=== PATIENT | male | born 1965 | race Caucasian/White ===

== ENCOUNTER 2016-05-03 12:20 | Emergency (ER) | payer MEDICAID ==
[~2016-05-03] VITALS: Ht 182.9 cm; Wt 61.4 kg
[~2016-05-03 12:20] MED LIST: ACETAMINOPHEN W1 TA6 PO; AMOXICILLIN 50500 MG PO; AMOXICILLIN 8751 TAB PO; ASPIRIN 32325 MG/TAB PO; ASPRIN; ASPRIN PO; ATORVASTATIN; B-1100 MG PO; CEFTIN 250250 MG/TAB PO; CELEXA 20MG20 MG/TAB PO; CEPHALEXIN500 M1 PO; CIPRO 500MG TA500 MG PO; DAZIDOX10 MG PO; EFFIENT10 MG PO; FIORINAL W/CODE1 CA2 PO; FLEXERIL 1010 MG/TAB PO; FLEXERIL10 MG PO; IBU800 M1 PO; IMDUR30 MG PO; INDERAL 10MG10 MG PO; INDERAL 20MG20 MG PO; KLONOPIN 1MG1 MG PO; KLONOPIN0.5 MG PO; LIP PO; LISINOPRIL2.5 MG PO; LORTAB 5/500 501 TAB PO; METOPROLOL25 MG PO; MOBIC 7.5MG7.5 MG PO; MOTRIN 400400 MG/TAB PO; MULTIPLE VITAMI1 CAP PO; NAPROSYN500 MG PO; NO HOME MEDICATIONS; NORCO 325 MG-51 TAB; NORCO 325 MG-51 TAB PO; NORCO 325 MG-7.1 TAB PO; NORVASC 5MG5 MG/TAB PO; OMEPRAZOLE20 MG PO; PEN-VEE K250 MG PO; PEN-VEE K500 MG PO; PEPCID 20MG TAB20 MG PO; PEPCID AC20 M1 PO; PERCOCET 325 MG1 TA2 PO; PHENERGAN 25 TA25 MG PO; PHENERGAN W/CO120 M1 PO; PHENERGAN W/CO120 ML PO; PLAVIX 75MG TAB75 MG PO; PREDNISONE10 MG PO; PREDNISONE20 MG PO; PROMETHAZINE12.5 M5 PO; REGLAN 10MG10 MG/TAB PO; ROBAXIN 50500 MG/TAB PO; TESSALON PERLE200 MG PO; TUSS PO; TYLENOL 325MG325 MG PO; TYLENOL W/COD1 UDTAB PO; ULTRAM 50MG TAB50 MG PO; UNABLE; VALIUM 10MG10 MG/TAB PO; VALIUM 2MG T2 MG/TAB PO; VALIUM 5MG T5 MG/TAB PO; ZITHROMAX 250M250 MG PO; ZOFRAN4 M1 PO; ZOFRAN8 MG PO; [UNRECOGNIZED DRUG - OTHER] PO; [UNRECOGNIZED DRUG - REMARK]; [UNRECOGNIZED DRUG - REMARK]
[2016-05-03 12:24] VITALS: BP 137/95; PULSE 74; TEMP 97.4
== END 2016-05-03 12:52 | disposition home or self-care (01) ==
LOC: COL.ER 12:20
DX: R05 Cough (principal)

== ENCOUNTER 2016-09-06 13:43 | Emergency (ER) | payer MEDICAID ==
[~2016-09-06] VITALS: Ht 170.2 cm; Wt 63.6 kg
[2016-09-06 13:47] VITALS: BP 127/87; PULSE 93; TEMP 97.9
== END 2016-09-06 15:27 | disposition home or self-care (01) ==
LOC: COL.ER 13:43
DX: S62.667A Nondisplaced fracture of distal phalanx of left little finger, initial encounter for closed fracture (principal); S67.197A Crushing injury of left little finger, initial encounter; S60.052A Contusion of left little finger without damage to nail, initial encounter; W23.0XXA Caught, crushed, jammed, or pinched between moving objects, initial encounter; Y92.009 Unspecified place in unspecified non-institutional (private) residence as the place of occurrence of the external cause; Z95.1 Presence of aortocoronary bypass graft; G43.909 Migraine, unspecified, not intractable, without status migrainosus; F41.9 Anxiety disorder, unspecified; I25.10 Atherosclerotic heart disease of native coronary artery without angina pectoris; F17.200 Nicotine dependence, unspecified, uncomplicated; G89.29 Other chronic pain

== ENCOUNTER 2016-10-27 09:25 | Emergency (ER) | payer MEDICAID ==
[~2016-10-27] VITALS: Ht 172.7 cm; Wt 63.6 kg
[2016-10-27 09:27] VITALS: TEMP 97.4
[2016-10-27 10:01] LABS: BASO # 0.1 (0.0-0.2); BASO % 0.7 % (0.0-2.0); EOS # 0.2 (0.0-0.7); EOS % 1.8 % (0-4.0); GRAN # 5.1 (1.4-6.5); GRAN % 61.7 % (42.2-75.2); HEMATOCRIT 47.7 % (42.0-52.0); HEMOGLOBIN 15.9 g/dl (13.5-18.0); LYMPH # 2.2 (1.2-3.4); LYMPH % 26.7 % (20.0-51.0); MEAN CELL VOLUME 91 fl (80.0-100.0); MEAN CORPUSCULAR HEMOGLOBIN 30 pg (27.0-31.0); MEAN CORPUSCULAR HGB CONC 33 g/dl (33.0-37.0); MEAN PLATELET VOLUME 10.3 fl (7.4-10.4); MONO # 0.7 (0.1-0.6); MONO % 8.9 % (1.7-9.3); PLATELET COUNT 276 K/mm3 (130-400); RED BLOOD COUNT 5.27 M/mm3 (4.20-5.60); REDCELL DISTRIBUTION WIDTH-CV 13.3 % (11.5-14.5); WHITE BLOOD COUNT 8.3 K/mm3 (4.8-10.8)
[2016-10-27 10:09] LABS: CALCIUM 9.7 mg/dL (8.4-10.2); CREATININE, serum 1.1 mg/dL (0.66-1.25); POTASSIUM 4.1 mmol/L (3.4-5.0)
[2016-10-27] MEDS ORDERED: FIORICET 325 MG1 TA1 PO (11:26)
[2016-10-27] MEDS ORDERED: ZOFRAN ODT4 MG PO (11:26)
[2016-10-27 12:13] VITALS: BP 109/71; PULSE 88
== END 2016-10-27 12:14 | disposition home or self-care (01) ==
LOC: COL.ER 09:25
PROVIDERS: Emergency Medicine
DX: G43.909 Migraine, unspecified, not intractable, without status migrainosus (principal); F17.210 Nicotine dependence, cigarettes, uncomplicated; Z86.79 Personal history of other diseases of the circulatory system; Z95.5 Presence of coronary angioplasty implant and graft; Z95.1 Presence of aortocoronary bypass graft; Z98.890 Other specified postprocedural states
CPT/HCPCS: J1630; J1885; J2765; J3010; J7030

== ENCOUNTER 2016-10-27 18:38 | Emergency (ER) | payer MEDICAID ==
[~2016-10-27] VITALS: Ht 172.7 cm; Wt 63.6 kg
[~2016-10-27 18:38] MED LIST changes: +FIORICET 325 MG1 TA1 PO; +ZOFRAN ODT4 MG PO
[2016-10-27 18:40] VITALS: BP 135/90; TEMP 98
[2016-10-27 19:22] VITALS: PULSE 72
== END 2016-10-27 19:23 | disposition home or self-care (01) ==
LOC: COL.ER 18:38
DX: G43.909 Migraine, unspecified, not intractable, without status migrainosus (principal); I25.10 Atherosclerotic heart disease of native coronary artery without angina pectoris; Z95.1 Presence of aortocoronary bypass graft; F17.200 Nicotine dependence, unspecified, uncomplicated
CPT/HCPCS: J2300; J2550

== ENCOUNTER 2016-10-28 19:25 | Emergency (ER) | payer MEDICAID ==
[~2016-10-28] VITALS: Ht 172.7 cm; Wt 63.6 kg
[2016-10-28 19:31] VITALS: BP 137/95; TEMP 97.5
[2016-10-28 21:02] VITALS: PULSE 93
== END 2016-10-28 21:02 | disposition home or self-care (01) ==
LOC: COL.ER 19:25
DX: G43.909 Migraine, unspecified, not intractable, without status migrainosus (principal)
CPT/HCPCS: J1100; J2300; J2550

== ENCOUNTER 2016-11-30 08:07 | Emergency (ER) | payer MEDICAID ==
[~2016-11-30] VITALS: Ht 172.7 cm; Wt 63.6 kg
[2016-11-30 08:10] VITALS: BP 125/60; PULSE 97; TEMP 98
[2016-11-30] MEDS ORDERED: PREDNISONE20 MG PO (08:26)
[2016-11-30] MEDS ORDERED: ZITHROMAX Z PA250 MG PO (08:26)
[2016-11-30] MEDS ORDERED: TYLENOL 325MG325 MG PO (08:39)
== END 2016-11-30 09:05 | disposition home or self-care (01) ==
LOC: COL.ER 08:07
DX: J40 Bronchitis, not specified as acute or chronic (principal)

== ENCOUNTER 2016-11-30 11:46 | Emergency (ER) | payer MEDICAID ==
[~2016-11-30] VITALS: Ht 172.7 cm; Wt 63.6 kg
[~2016-11-30 11:46] MED LIST changes: +ZITHROMAX Z PA250 MG PO
[2016-11-30 11:55] VITALS: BP 137/87; TEMP 97.7
[2016-11-30 13:20] VITALS: PULSE 74
== END 2016-11-30 13:20 | disposition home or self-care (01) ==
LOC: COL.ER 11:46
DX: J20.9 Acute bronchitis, unspecified (principal); J98.01 Acute bronchospasm; R51 Headache; I25.10 Atherosclerotic heart disease of native coronary artery without angina pectoris; F41.9 Anxiety disorder, unspecified; F17.210 Nicotine dependence, cigarettes, uncomplicated; Z95.1 Presence of aortocoronary bypass graft; Z95.5 Presence of coronary angioplasty implant and graft
CPT/HCPCS: J2300; J2550

== ENCOUNTER 2016-12-01 09:39 | Emergency (ER) | payer MEDICAID ==
[~2016-12-01] VITALS: Ht 172.7 cm; Wt 63.6 kg
[2016-12-01 09:49] VITALS: BP 138/79; PULSE 106; TEMP 97.6
[2016-12-02] MEDS ORDERED: VALIUM 5MG T5 MG/TAB PO (13:55)
== END 2016-12-01 11:03 | disposition home or self-care (01) ==
LOC: COL.ER 09:39
DX: G43.909 Migraine, unspecified, not intractable, without status migrainosus (principal); I25.10 Atherosclerotic heart disease of native coronary artery without angina pectoris; F17.210 Nicotine dependence, cigarettes, uncomplicated
CPT/HCPCS: J2300; J2550

== ENCOUNTER 2016-12-02 06:47 | Emergency (ER) | payer MEDICAID ==
[~2016-12-02] VITALS: Ht 172.7 cm; Wt 63.6 kg
[2016-12-02 06:50] VITALS: BP 145/78; PULSE 99; TEMP 97.8
[2016-12-02] MEDS ORDERED: VALIUM 5MG T5 MG/TAB PO (13:55)
== END 2016-12-02 07:02 | disposition left against medical advice (07) ==
LOC: COL.ER 06:47
DX: R51 Headache (principal); I25.10 Atherosclerotic heart disease of native coronary artery without angina pectoris; F17.200 Nicotine dependence, unspecified, uncomplicated; Z95.1 Presence of aortocoronary bypass graft

== ENCOUNTER 2016-12-02 13:50 | Emergency (ER) | payer MEDICAID ==
[~2016-12-02] VITALS: Ht 172.7 cm; Wt 65.1 kg
[2016-12-02 13:51] VITALS: BP 117/76; PULSE 112; TEMP 97.6
[2016-12-02] MEDS ORDERED: VALIUM 5MG T5 MG/TAB PO (13:55)
== END 2016-12-02 15:45 | disposition left against medical advice (07) ==
LOC: COL.ER 13:50
DX: G43.909 Migraine, unspecified, not intractable, without status migrainosus (principal); F41.9 Anxiety disorder, unspecified; F17.210 Nicotine dependence, cigarettes, uncomplicated; Z95.5 Presence of coronary angioplasty implant and graft; Z79.82 Long term (current) use of aspirin
CPT/HCPCS: J1885; J2550

== ENCOUNTER 2017-03-04 16:15 | Emergency (ER) | payer MEDICAID ==
[~2017-03-04] VITALS: Ht 172.7 cm; Wt 61.4 kg
[2017-03-04 16:17] VITALS: BP 141/84; TEMP 97.6
[2017-03-04] MEDS ORDERED: TYLENOL W/COD1 UDTAB PO (16:19)
[2017-03-04] MEDS ORDERED: MOTRIN 200200 MG/TAB PO (16:43)
[2017-03-04 18:27] VITALS: PULSE 92
== END 2017-03-04 18:28 | disposition home or self-care (01) ==
LOC: COL.ER 16:15
DX: R51 Headache (principal); F41.9 Anxiety disorder, unspecified; F17.210 Nicotine dependence, cigarettes, uncomplicated; Z79.1 Long term (current) use of non-steroidal anti-inflammatories (NSAID)
CPT/HCPCS: J2300; J2550

== ENCOUNTER 2017-03-06 17:29 | Emergency (ER) | payer MEDICAID ==
[~2017-03-06] VITALS: Ht 167.6 cm; Wt 65.9 kg
[~2017-03-06 17:29] MED LIST changes: +MOTRIN 200200 MG/TAB PO
[2017-03-06 17:30] VITALS: TEMP 97.9
[2017-03-06] MEDS ORDERED: TYLENOL W/COD1 UDTAB PO (17:33)
[2017-03-06 17:57] LABS: BASO # 0.1 (0.0-0.2); BASO % 0.8 % (0.0-2.0); EOS # 0.1 (0.0-0.7); EOS % 1.6 % (0-4.0); GRAN # 5.2 (1.4-6.5); GRAN % 65.4 % (42.2-75.2); HEMATOCRIT 44.4 % (42.0-52.0); LYMPH # 1.9 (1.2-3.4); LYMPH % 24.2 % (20.0-51.0); MEAN CELL VOLUME 89 fl (80.0-100.0); MEAN CORPUSCULAR HEMOGLOBIN 30 pg (27.0-31.0); MEAN CORPUSCULAR HGB CONC 34 g/dl (33.0-37.0); MEAN PLATELET VOLUME 10.6 fl (7.4-10.4); MONO # 0.6 (0.1-0.6); MONO % 7.7 % (1.7-9.3); PLATELET COUNT 247 K/mm3 (130-400); RED BLOOD COUNT 4.99 M/mm3 (4.20-5.60)
[2017-03-06 18:08] LABS: ANION GAP 11 mmol/L (7-16); BLOOD UREA NITROGEN 24 mg/dL (9-20); CALCIUM 9.3 mg/dL (8.4-10.2); CARBON DIOXIDE 22 mmol/L (22-30); CHLORIDE 108 mmol/L (98-107); CREATININE, serum 1.14 mg/dL (0.66-1.25); GLUCOSE 151 mg/dL (74-106); POTASSIUM 3.8 mmol/L (3.4-5.0); SODIUM 142 mmol/L (137-145)
[2017-03-06 18:20] LABS: TROPONIN-I < 0.012 ng/mL (0.000-0.034)
[2017-03-06 19:15] VITALS: BP 134/94; PULSE 86
== END 2017-03-06 19:15 | disposition home or self-care (01) ==
LOC: COL.ER 17:29
PROVIDERS: Emergency Medicine
DX: S01.312A Laceration without foreign body of left ear, initial encounter (principal); R55 Syncope and collapse; I25.10 Atherosclerotic heart disease of native coronary artery without angina pectoris; I25.2 Old myocardial infarction; J44.9 Chronic obstructive pulmonary disease, unspecified; G43.909 Migraine, unspecified, not intractable, without status migrainosus; F17.210 Nicotine dependence, cigarettes, uncomplicated; Z79.1 Long term (current) use of non-steroidal anti-inflammatories (NSAID); Z95.5 Presence of coronary angioplasty implant and graft; W22.8XXA Striking against or struck by other objects, initial encounter
CPT/HCPCS: J1885

== ENCOUNTER 2017-05-28 07:57 | Emergency (ER) | payer MEDICAID ==
[~2017-05-28] VITALS: Ht 172.7 cm; Wt 61.4 kg
[2017-05-28 08:08] VITALS: BP 148/98; TEMP 97.8
[2017-05-28 09:53] VITALS: PULSE 80
== END 2017-05-28 09:54 | disposition home or self-care (01) ==
LOC: COL.ER 07:57
DX: G43.909 Migraine, unspecified, not intractable, without status migrainosus (principal); I25.2 Old myocardial infarction; F17.210 Nicotine dependence, cigarettes, uncomplicated; Z95.5 Presence of coronary angioplasty implant and graft
CPT/HCPCS: J2300; J2550

== ENCOUNTER 2017-06-03 13:42 | Emergency (ER) | payer MEDICAID ==
[~2017-06-03] VITALS: Ht 172.7 cm; Wt 61.4 kg
[2017-06-03 13:46] VITALS: BP 184/85; TEMP 98.3
[2017-06-03 15:40] VITALS: PULSE 68
== END 2017-06-03 15:41 | disposition home or self-care (01) ==
LOC: COL.ER 13:42
DX: G43.909 Migraine, unspecified, not intractable, without status migrainosus (principal); I25.10 Atherosclerotic heart disease of native coronary artery without angina pectoris; F17.210 Nicotine dependence, cigarettes, uncomplicated; Z95.1 Presence of aortocoronary bypass graft
CPT/HCPCS: J2300; J2550

== ENCOUNTER 2017-08-02 10:28 | Emergency (ER) | payer MEDICAID ==
[~2017-08-02] VITALS: Ht 172.7 cm; Wt 63.6 kg
[2017-08-02 10:30] VITALS: BP 145/86; TEMP 98.2
[2017-08-02] MEDS ORDERED: ASPIRIN 32325 MG/TAB PO (10:33)
[2017-08-02 11:11] VITALS: PULSE 88
== END 2017-08-02 11:11 | disposition home or self-care (01) ==
LOC: COL.ER 10:28
DX: G43.909 Migraine, unspecified, not intractable, without status migrainosus (principal); I25.2 Old myocardial infarction; F17.210 Nicotine dependence, cigarettes, uncomplicated; Z95.5 Presence of coronary angioplasty implant and graft; Z79.82 Long term (current) use of aspirin
CPT/HCPCS: J2300; J2550

== ENCOUNTER 2017-08-11 17:26 | Emergency (ER) | payer MEDICAID ==
[~2017-08-11] VITALS: Ht 172.7 cm; Wt 63.6 kg
[2017-08-11 17:28] VITALS: BP 150/90; PULSE 80; TEMP 98.4
== END 2017-08-11 18:28 | disposition home or self-care (01) ==
LOC: COL.ER 17:26
DX: G43.909 Migraine, unspecified, not intractable, without status migrainosus (principal); I25.10 Atherosclerotic heart disease of native coronary artery without angina pectoris; F41.9 Anxiety disorder, unspecified; F17.210 Nicotine dependence, cigarettes, uncomplicated; Z79.82 Long term (current) use of aspirin
CPT/HCPCS: J0595; J2550

== ENCOUNTER 2017-09-04 11:53 | Emergency (ER) | payer MEDICAID ==
[~2017-09-04] VITALS: Ht 167.6 cm; Wt 65.9 kg
[2017-09-04 12:45] VITALS: BP 142/78; PULSE 85
== END 2017-09-04 12:45 ==
LOC: COL.ER 11:53
DX: S46.911A Strain of unspecified muscle, fascia and tendon at shoulder and upper arm level, right arm, initial encounter (principal); Z79.82 Long term (current) use of aspirin; F17.210 Nicotine dependence, cigarettes, uncomplicated; X50.0XXA Overexertion from strenuous movement or load, initial encounter

== ENCOUNTER 2018-01-05 14:39 | Emergency (ER) | payer MEDICAID ==
[~2018-01-05] VITALS: Ht 172.7 cm; Wt 61.4 kg
[2018-01-05 14:44] VITALS: BP 117/73; TEMP 97.4
[2018-01-05 15:53] VITALS: PULSE 74
== END 2018-01-05 15:53 | disposition home or self-care (01) ==
LOC: COL.ER 14:39
DX: G43.909 Migraine, unspecified, not intractable, without status migrainosus (principal); I25.10 Atherosclerotic heart disease of native coronary artery without angina pectoris; I10 Essential (primary) hypertension; F41.9 Anxiety disorder, unspecified; F17.210 Nicotine dependence, cigarettes, uncomplicated; Z95.1 Presence of aortocoronary bypass graft; Z79.82 Long term (current) use of aspirin; Z88.5 Allergy status to narcotic agent; Z98.890 Other specified postprocedural states
CPT/HCPCS: J0595; J2550

== ENCOUNTER 2018-01-29 11:07 | Emergency (ER) | payer MEDICAID ==
[~2018-01-29] VITALS: Ht 172.7 cm; Wt 63.6 kg
[2018-01-29 11:09] VITALS: BP 159/100; PULSE 69; TEMP 97.5
== END 2018-01-29 12:05 | disposition home or self-care (01) ==
LOC: COL.ER 11:07
DX: G43.909 Migraine, unspecified, not intractable, without status migrainosus (principal); F17.210 Nicotine dependence, cigarettes, uncomplicated; Z79.82 Long term (current) use of aspirin
CPT/HCPCS: J0595; J2550

== ENCOUNTER 2018-05-29 16:53 | Emergency (ER) | payer MEDICAID ==
[~2018-05-29] VITALS: Ht 172.7 cm; Wt 65.9 kg
[2018-05-29 17:12] VITALS: BP 117/74; TEMP 97.4
[2018-05-29 18:14] VITALS: PULSE 87
== END 2018-05-29 18:14 | disposition home or self-care (01) ==
LOC: COL.ER 16:53
DX: G43.909 Migraine, unspecified, not intractable, without status migrainosus (principal); F41.9 Anxiety disorder, unspecified; F17.210 Nicotine dependence, cigarettes, uncomplicated; I25.10 Atherosclerotic heart disease of native coronary artery without angina pectoris; Z79.82 Long term (current) use of aspirin
CPT/HCPCS: J0595; J2550

== ENCOUNTER 2018-07-17 18:08 | Emergency (ER) | payer MEDICAID ==
[~2018-07-17] VITALS: Ht 172.7 cm; Wt 63.6 kg
[2018-07-17 18:16] VITALS: BP 136/87; PULSE 76; TEMP 97.5
== END 2018-07-17 18:56 | disposition left against medical advice (07) ==
LOC: COL.ER 18:08
DX: G43.909 Migraine, unspecified, not intractable, without status migrainosus (principal)

== ENCOUNTER 2019-01-06 15:42 | Emergency (ER) | payer MEDICAID ==
[~2019-01-06] VITALS: Ht 175.3 cm; Wt 63.6 kg
[2019-01-06 15:52] VITALS: BP 130/84; TEMP 97.3
[2019-01-06 16:40] VITALS: PULSE 71
== END 2019-01-06 16:40 | disposition home or self-care (01) ==
LOC: COL.ER 15:42
DX: G43.909 Migraine, unspecified, not intractable, without status migrainosus (principal); I25.10 Atherosclerotic heart disease of native coronary artery without angina pectoris; F17.210 Nicotine dependence, cigarettes, uncomplicated; Z95.1 Presence of aortocoronary bypass graft
CPT/HCPCS: J2300; J2550

== ENCOUNTER 2019-02-10 14:52 | Emergency (ER) | payer MEDICAID ==
[~2019-02-10] VITALS: Ht 182.9 cm; Wt 65.9 kg
[2019-02-10 15:04] VITALS: BP 136/90; TEMP 97.5
[2019-02-10] MEDS ORDERED: TUSS PO (15:18)
[2019-02-10] MEDS ORDERED: ZITHROMAX Z PA250 MG PO (15:18)
[2019-02-10 15:23] VITALS: PULSE 85
== END 2019-02-10 15:23 | disposition home or self-care (01) ==
LOC: COL.ER 14:52
DX: J20.9 Acute bronchitis, unspecified (principal); I25.10 Atherosclerotic heart disease of native coronary artery without angina pectoris; G43.909 Migraine, unspecified, not intractable, without status migrainosus; F17.210 Nicotine dependence, cigarettes, uncomplicated; Z79.82 Long term (current) use of aspirin

== ENCOUNTER 2019-03-27 17:16 | Emergency (ER) | payer MEDICAID ==
[~2019-03-27] VITALS: Ht 172.7 cm; Wt 63.6 kg
[2019-03-27] MEDS ORDERED: TESSALON P100 MG/CAP PO (19:57)
[2019-03-27] MEDS ORDERED: PHENERGAN W/CO120 M1 PO (19:57)
[2019-03-27] MEDS ORDERED: TAMIFLU 75MG75 MG PO (19:57)
[2019-03-27 20:10] VITALS: BP 132/88; PULSE 91; TEMP 97.5
== END 2019-03-27 20:09 | disposition home or self-care (01) ==
LOC: COL.ER 17:16
DX: J11.1 Influenza due to unidentified influenza virus with other respiratory manifestations (principal); I25.10 Atherosclerotic heart disease of native coronary artery without angina pectoris; F17.210 Nicotine dependence, cigarettes, uncomplicated; Z95.9 Presence of cardiac and vascular implant and graft, unspecified; Z79.82 Long term (current) use of aspirin

== ENCOUNTER 2019-04-29 13:39 | Emergency (ER) | payer MEDICAID ==
[~2019-04-29] VITALS: Ht 172.7 cm; Wt 63.6 kg
[~2019-04-29 13:39] MED LIST changes: +TAMIFLU 75MG75 MG PO; +TESSALON P100 MG/CAP PO
[2019-04-29] MEDS ORDERED: PHENERGAN W/CO120 M1 PO (15:08)
[2019-04-29] MEDS ORDERED: ZITHROMAX Z PA250 MG PO (15:08)
[2019-04-29] MEDS ORDERED: PROAIR HFA0.09 MG/AC IH (15:10)
[2019-04-29 15:36] VITALS: BP 142/78; PULSE 88; TEMP 98
== END 2019-04-29 15:35 | disposition home or self-care (01) ==
LOC: COL.ER 13:39
DX: J20.9 Acute bronchitis, unspecified (principal); F41.9 Anxiety disorder, unspecified; G43.909 Migraine, unspecified, not intractable, without status migrainosus; I25.10 Atherosclerotic heart disease of native coronary artery without angina pectoris; F17.210 Nicotine dependence, cigarettes, uncomplicated; Z95.5 Presence of coronary angioplasty implant and graft

== ENCOUNTER 2019-05-13 09:49 | Inpatient (IN) | payer MEDICAID ==
[~2019-05-13] VITALS: Ht 182.9 cm; Wt 72.5 kg
[~2019-05-13 09:49] MED LIST changes: +PROAIR HFA0.09 MG/AC IH
[2019-05-13 10:41] LABS: BASO % 0.5 % (0.0-2.0); EOS % 0.5 % (0-4.0); GRAN # 6.1 (1.4-6.5); GRAN % 75.5 % (42.2-75.2); HEMATOCRIT 42.9 % (42.0-52.0); HEMOGLOBIN 13.4 g/dl (13.5-18.0); LYMPH # 1.1 (1.2-3.4); LYMPH % 14.2 % (20.0-51.0); MEAN CELL VOLUME 92 fl (80.0-100.0); MEAN CORPUSCULAR HEMOGLOBIN 29 pg (27.0-31.0); MEAN CORPUSCULAR HGB CONC 31 g/dl (33.0-37.0); MEAN PLATELET VOLUME 10.5 fl (7.4-10.4); MONO # 0.7 (0.1-0.6); MONO % 8.9 % (1.7-9.3); PLATELET COUNT 276 K/mm3 (130-400); RED BLOOD COUNT 4.67 M/mm3 (4.20-5.60); REDCELL DISTRIBUTION WIDTH-CV 14.8 % (11.5-14.5)
[2019-05-13 10:45] LABS: ALBUMIN 3.8 gm/dL (3.5-5.0); BILIRUBIN,TOTAL 0.9 mg/dL (0.0-1.0); CALCIUM 8.7 mg/dL (8.4-10.2); CREATININE, serum 1.1 (0.66-1.25); POTASSIUM 3.8 mmol/L (3.4-5.0); TOTAL PROTEIN 7.7 gm/dL (6.4-8.2)
[2019-05-13 11:01] LABS: TROPONIN-I 0.047 ng/mL (0.000-0.035)
[2019-05-13] MEDS ORDERED: PROVENTIL0.09 MG/A1 IH (13:34)
--- NOTE | 2019-05-13 15:39 | NUR ---
Patient admitted to floor from ER at 1330. Patient is awake, oriented x4 and has just returned to bed from the bathroom. He voided in the urinal 325 ml, a clear and light yellow urine. Skin is normal temp and color but is dry with generalized scabs and multiple tattoos. Left leg and foot edematous at 1+ but right leg and foot is normal. Lung sounds are coarse. Patient has intermittent unproductive cough. Patient complains of mild chest pain at this point. Admission B is completed at this point.
[2019-05-13 16:40] VITALS: BP 136/101; PULSE 84; TEMP 97.3
[2019-05-13 16:43] VITALS: BP 136/101; PULSE 90; TEMP 97.3
--- NOTE | 2019-05-13 18:17 | NUR ---
Patient is currently sitting in bed watching TV. He ate 100% of his dinner and has been up independently to use the restroom. He has been informed of starting heparin drip after initial lab results are received. He complains of chest pain at 5 which is tolerable for him. He states he is ready to get some rest.
[2019-05-13 19:17] LABS: INR 1.4 (0.8-3.0); PROTHROMBIN TIME 16.3 SECONDS (9.7-12.8)
[2019-05-13 19:20] VITALS: BP 139/103; PULSE 96; TEMP 97.5
[2019-05-13 19:42] LABS: HEMATOCRIT 44.6 % (42.0-52.0); HEMOGLOBIN 14.6 g/dl (13.5-18.0); MEAN CORPUSCULAR HEMOGLOBIN 29 pg (27.0-31.0); MEAN CORPUSCULAR HGB CONC 33 g/dl (33.0-37.0); MEAN PLATELET VOLUME 11.3 fl (7.4-10.4); PLATELET COUNT 247 K/mm3 (130-400); RED BLOOD COUNT 5.11 M/mm3 (4.20-5.60); REDCELL DISTRIBUTION WIDTH-CV 14.7 % (11.5-14.5)
[2019-05-13 19:49] LABS: CALCIUM 8.8 mg/dL (8.4-10.2); CREATININE, serum 1.21 (0.66-1.25); MAGNESIUM 1.9 mg/dL (1.6-2.3); POTASSIUM 3.7 mmol/L (3.4-5.0)
[2019-05-13 19:51] LABS: MEAN CELL VOLUME 87 fl (80.0-100.0)
--- NOTE | 2019-05-13 20:00 | NUR ---
Recieved report from TOBY Mejia and TOBY Cerna. Assessment complete. Alert and oriented. Pt sleeping upon entry but easily aroused. C/O mid-chest pain, rate 5/10, requested pain med. PRN morphine adminstered as requested by pt. Tele monitor in place, leads checked. INT to LAC intact, flushed, dressing CDI. Heparin infusion started. Needs met. Call light within reach.
[2019-05-13 20:20] LABS: TSH w REFLEX 5.14 uIU/mL (0.465-4.680)
[2019-05-13 20:29] LABS: PARTIAL THROMBOPLASTIN TIME 32.2 SECONDS (26.0-37.0)
[2019-05-13 23:54] VITALS: BP 128/90; PULSE 102; TEMP 97.9
[2019-05-14 03:14] VITALS: BP 128/94; PULSE 95; TEMP 97.8
[2019-05-14 03:25] LABS: CALCIUM 8.5 mg/dL (8.4-10.2); CHOLESTEROL RISK RATIO 4.3; CREATININE, serum 1.33 (0.66-1.25); MAGNESIUM 1.9 mg/dL (1.6-2.3); POTASSIUM 3.6 mmol/L (3.4-5.0)
--- NOTE | 2019-05-14 06:02 | NUR ---
Monitored pt heparin rate and level throughout the night. Requested PRN morphine x2 on thsi shift for mid-chest pain, rate 8/10, wth relief. Needs met. Call light within reach.
--- NOTE | 2019-05-14 07:11 | NUR ---
Report given to TOBY Cenra and TOBY Dykes.
--- NOTE | 2019-05-14 08:05 | NUR ---
Shift report received from night RNAdriana. At time of assessment, patient is sitting on the side of the bed and states "My IV just popped out". The IV catheter, attached to the heparin drip, is hanging from the IV hook. Old IV dressing is removed, gauze and coban applied to site. There is no significant bleeding. This RN attempts one unsuccessful IV stick and lost charge card clerkJania starts a 20g in the left forearm. Heparin is resumed and patient requests morphine with complaints of chest pain 9/10. Morphine is administered and head to toe assessment is complete.
[2019-05-14 08:12] VITALS: BP 130/90; PULSE 88; TEMP 97.6
[2019-05-14 11:51] VITALS: BP 124/99; PULSE 86; TEMP 97.1
--- NOTE | 2019-05-14 13:37 | NUR ---
Patient leaving Against Medical Advice at this time. I witnessed Dr. Maya educating the patient about benefits/risks of leaving AMA. I reiterated these risks/benefits to patient prior to him signing the form. Patient refused the cardiac cath and states "I don't care, I just want to go home". Patient did express interest in starting the prescribed ASA, Plavix and atorvastatin at home. Tele and IV removed, master pilot provided CHF educational binder, and AMA papers signed.
[2019-05-14] MEDS ORDERED: PLAVIX 75MG TAB75 MG PO (14:24)
[2019-05-14] MEDS ORDERED: NITROSTAT0.4 MG/TAB SL (14:25)
[2019-05-14] MEDS ORDERED: ASPIRIN E.C. 8181 MG PO (14:26)
[2019-05-14] MEDS ORDERED: LIPITOR20 MG PO (14:26)
[2019-05-14] MEDS ORDERED: ZESTRIL 5MG5 MG PO (14:26)
[2019-05-14] MEDS ORDERED: TOPROL XL 25MG25 MG PO (14:27)
== END 2019-05-14 13:30 | disposition left against medical advice (07) | DRG 280 ==
LOC: COL.ER 09:49 → PEDS 12:41
PROVIDERS: Internal Medicine Interventional Cardiology; Nurse Practitioner Family; Physician Assistant; ADMIT Student in an Organized Health Care Education/Training Program
DX: I21.4 Non-ST elevation (NSTEMI) myocardial infarction (principal); I50.23 Acute on chronic systolic (congestive) heart failure; N17.9 Acute kidney failure, unspecified; I25.10 Atherosclerotic heart disease of native coronary artery without angina pectoris; Z95.5 Presence of coronary angioplasty implant and graft; G43.909 Migraine, unspecified, not intractable, without status migrainosus; Z91.19 Patient's noncompliance with other medical treatment and regimen; I08.1 Rheumatic disorders of both mitral and tricuspid valves; E87.6 Hypokalemia
CPT/HCPCS: 99223-AI; J1644; J1940; J2270; Q9967

== ENCOUNTER 2019-05-14 20:25 | Inpatient (IN) | payer MEDICAID ==
[2019-05-14] VITALS (43 sets, daily range): BP systolic 120; BP diastolic 88; PULSE 94; TEMP 97.3; O2SAT 93–98
[~2019-05-14] VITALS: Ht 182.9 cm; Wt 58.6 kg
[~2019-05-14 20:25] MED LIST changes: +ASPIRIN E.C. 8181 MG PO; +LIPITOR20 MG PO; +NITROSTAT0.4 MG/TAB SL; +PROVENTIL0.09 MG/A1 IH; +TOPROL XL 25MG25 MG PO; +ZESTRIL 5MG5 MG PO
[2019-05-14 20:59] LABS: BASO # 0.1 (0.0-0.2); BASO % 0.7 % (0.0-2.0); EOS # 0.1 (0.0-0.7); EOS % 0.7 % (0-4.0); GRAN # 5.1 (1.4-6.5); GRAN % 70.1 % (42.2-75.2); HEMATOCRIT 43.8 % (42.0-52.0); HEMOGLOBIN 13.6 g/dl (13.5-18.0); LYMPH # 1.2 (1.2-3.4); LYMPH % 16.8 % (20.0-51.0); MEAN CORPUSCULAR HEMOGLOBIN 29 pg (27.0-31.0); MEAN CORPUSCULAR HGB CONC 31 g/dl (33.0-37.0); MEAN PLATELET VOLUME 10.8 fl (7.4-10.4); MONO # 0.8 (0.1-0.6); MONO % 11.4 % (1.7-9.3); PLATELET COUNT 270 K/mm3 (130-400); RED BLOOD COUNT 4.78 M/mm3 (4.20-5.60); REDCELL DISTRIBUTION WIDTH-CV 14.8 % (11.5-14.5)
[2019-05-14 21:01] LABS: MEAN CELL VOLUME 92 fl (80.0-100.0)
[2019-05-14 21:03] LABS: INR 1.4 (0.8-3.0); PROTHROMBIN TIME 16.2 SECONDS (9.7-12.8)
[2019-05-14 21:08] LABS: ALBUMIN 3.9 gm/dL (3.5-5.0); CALCIUM 8.7 mg/dL (8.4-10.2); CREATININE, serum 1.35 (0.66-1.25); POTASSIUM 3.7 mmol/L (3.4-5.0); TOTAL PROTEIN 7.8 gm/dL (6.4-8.2)
[2019-05-14 21:21] LABS: TROPONIN-I 0.043 ng/mL (0.000-0.035)
--- NOTE | 2019-05-14 22:16 | NUR ---
RECEIVED REPORT FROM TOBY FLETCHER. AWAITING ARRIVAL OF PT TO [facility].
--- NOTE | 2019-05-14 22:33 | NUR ---
PT ARRIVES TO [facility]. PT ABLE TO TRASNFER SELF TO BED AND USE URINAL. STATES CP 9/10 UPON ARRIVAL MIDSTERNAL BUT IS NOT CRUSHING FEELING IS MORE OF A STRONG ACHY FEELING. PLACED ON BEDSIDE CONTINUOUS MONITOR. CALL LIGHT WITHIN REACH AND EDUCATION GIVEN. EDUCATED PT ON CALLING PRIOR TO GET OOB BECAUSE OF ALL THE CORDS AND TO PREVENT FALLS. DEMONSTRATES UNDERSTANDING. PT COOPERATIVE WITH CARE AT THIS TIME. VSS. SEE GTT TITRATIONS FLOWSHEET.
--- NOTE | 2019-05-14 23:00 | NUR ---
C/O CP 9 AT THIS TIME, MIDSTERNAL CONSTANT ACHING FEELING.
--- NOTE | 2019-05-14 23:20 | NUR ---
C/O CP 09/25. REQUESTING SOMETHING ELSE TO HELP. SPOKE WITH JOSE ALBERTO RODRIGES. SEE MAR FOR MEDICATION ADMINISTRATION.
[2019-05-15] VITALS (264 sets, daily range): BP systolic 112–132; BP diastolic 75–97; PULSE 77–92; TEMP 97.5–97.8; O2SAT 86–100
--- NOTE | 2019-05-15 01:30 | NUR ---
DR CHRISTIANSON NOTIFIED OF CONSULT. STATES HE WILL SEE PT IN THE MORNING TO DECIDE POC.
--- NOTE | 2019-05-15 01:54 | NUR ---
PT PLACED ON 2L VIA NC. NOTED TO DROP TO 89% WHILE SLEEPING AND LYING ON LEFT SIDE. PT AROUSES EASILY AND VERBALIZES UNDERSTNADING OF USE FO OXYGEN.
--- NOTE | 2019-05-15 02:20 | NUR ---
Nia MICHEL CATALOGUE MAKER AT BEDSIDE FOR ASSESSMENT AND TO DISCUSS POC WITH PT. NEW ORDERS RECEIVED.
--- NOTE | 2019-05-15 03:26 | NUR ---
ANTELMO SNOW FENCE ERECTOR NOTIFIED OF PT HOLLERING AND STATES "I AM SO ANXIOUS AND CAN'T SETTLE BACK DOWN TO SLEEP. I AM AGGITATED." ATTEMPTS MADE TO CALM PT AND TO HELP HIM FIGURE OUT WHAT IS BOTHERING HIM. PT REQUESTS SOMETHING TO HELP CALM HIM DOWN. SEE MAR FOR MEDICATION ADMINISTRATION.
[2019-05-15 04:36] LABS: BASO % 0.6 % (0.0-2.0); EOS % 0.6 % (0-4.0); HEMATOCRIT 37.3 % (42.0-52.0); HEMOGLOBIN 11.9 g/dl (13.5-18.0); MEAN CELL VOLUME 89 fl (80.0-100.0); MEAN CORPUSCULAR HEMOGLOBIN 28 pg (27.0-31.0); MEAN CORPUSCULAR HGB CONC 32 g/dl (33.0-37.0); MEAN PLATELET VOLUME 10.7 fl (7.4-10.4); MONO # 0.8 (0.1-0.6); MONO % 11.5 % (1.7-9.3); PLATELET COUNT 226 K/mm3 (130-400); REDCELL DISTRIBUTION WIDTH-CV 14.6 % (11.5-14.5)
[2019-05-15 05:43] LABS: ALBUMIN 3.2 gm/dL (3.5-5.0); CALCIUM 8.4 mg/dL (8.4-10.2); CREATININE, serum 1.15 (0.66-1.25); MAGNESIUM 1.8 mg/dL (1.6-2.3); POTASSIUM 3.2 mmol/L (3.4-5.0); TOTAL PROTEIN 6.7 gm/dL (6.4-8.2)
[2019-05-15 05:55] LABS: TROPONIN-I 6 HR POST INITIAL 0.049 ng/mL (0.000-0.034)
--- NOTE | 2019-05-15 08:00 | NUR ---
Shift assessment complete at this time. Plan of care reviewed at bedside with patient. Additional time taken to address any other needs or concerns. Vitals stable at this time. Pt reports moderate to severe chest pain at a 7-8/10 severity that is aching in nature. PRN morphine et schedule nitro/heparin gtts used for pain relief with moderate effect per patient report. Bed in low position, call light within reach, will continue to monitor.
--- NOTE | 2019-05-15 11:26 | NUR ---
First visit from the prop maker. No needs right now.
--- NOTE | 2019-05-15 12:00 | NUR ---
Pt resting in bed. Reports minimal to no changes in chest discomfort. Nitroglycerin and Heparin gtts continuing. Vitals stable at this time. Bed in low position, call light within reach, will continue to monitor.
--- NOTE | 2019-05-15 14:46 | NUR ---
EVENT SECURITY OFFICER student met with the patient to complete initial intake. The patient kept his eyes closed and was sleepy while answering questions. The patient lives in [place] with his girlfriend. He denies DME usage and is independent with ADLs. The patient reports he does not have a PCP. The EMR has Dr. Dumont as his PCP. EVENT SECURITY OFFICER student contacted Dr. Dumont's office and they report they last saw the patient in July 2018 and has a scheduled appointment on August 08, 2019. The patient reports he uses [facility] for medications. The patient does not have advanced directives in the EMR and was not interested in DPOA-HC form. He states his emergency contacted will be his girlfriend, Becky Marquez and the number taken from EMR is . Social service will continue to follow to ensure a safe discharge.
--- NOTE | 2019-05-15 19:30 | NUR ---
Patient reporting 10/10 chest pain. Pain is located in center of chest and feels like a "punch" No radiation. Patient reports pain location and quality is unchanged from previous assessments. Reports baseline pain since arriveal to hospital has been around "5". PRN morphine administered. RT to obtain EKG. Will continue to monitor.
--- NOTE | 2019-05-15 19:32 | NUR ---
Bedside report given to TOBY Astudillo.
--- NOTE | 2019-05-15 20:15 | NUR ---
Reports chest pain is down to a 5/10 after morphine administration. Will continue to monitor.
[2019-05-15 20:26] LABS: HEMOGLOBIN 12.6 g/dl (13.5-18.0); MEAN CELL VOLUME 89 fl (80.0-100.0); MEAN CORPUSCULAR HEMOGLOBIN 29 pg (27.0-31.0); MEAN CORPUSCULAR HGB CONC 32 g/dl (33.0-37.0); PLATELET COUNT 254 K/mm3 (130-400); REDCELL DISTRIBUTION WIDTH-CV 14.8 % (11.5-14.5)
[2019-05-15 20:33] LABS: INR 1.4 (0.8-3.0); PROTHROMBIN TIME 16.3 SECONDS (9.7-12.8)
[2019-05-15 20:36] LABS: CALCIUM 8.5 mg/dL (8.4-10.2); CREATININE, serum 1.2 (0.66-1.25); POTASSIUM 3.6 mmol/L (3.4-5.0)
[2019-05-15 21:08] LABS: PARTIAL THROMBOPLASTIN TIME 56.9 SECONDS (26.0-37.0)
--- NOTE | 2019-05-15 23:22 | NUR ---
Patient reporting shortness of breath; o2 mid 90's on 2L NC. RT notified; will administer PRN breathing treatment. Reporting chest pain which has remained in central chest with no radiation. Estefanía rating pain as a 7/10. Administered PRN morphine. Will continue to monitor.
[2019-05-16] VITALS (16 sets, daily range): BP systolic 111–136; BP diastolic 56–116; PULSE 70–97; TEMP 97.6–98.6
[2019-05-16 05:14] LABS: BASO % 0.5 % (0.0-2.0); EOS % 0.4 % (0-4.0); GRAN % 73.3 % (42.2-75.2); HEMATOCRIT 39.9 % (42.0-52.0); HEMOGLOBIN 12.8 g/dl (13.5-18.0); LYMPH % 12.4 % (20.0-51.0); MEAN CELL VOLUME 89 fl (80.0-100.0); MEAN CORPUSCULAR HEMOGLOBIN 28 pg (27.0-31.0); MEAN CORPUSCULAR HGB CONC 32 g/dl (33.0-37.0); MEAN PLATELET VOLUME 10.5 fl (7.4-10.4); MONO # 1.1 (0.1-0.6); MONO % 13.2 % (1.7-9.3); PLATELET COUNT 227 K/mm3 (130-400); RED BLOOD COUNT 4.51 M/mm3 (4.20-5.60); REDCELL DISTRIBUTION WIDTH-CV 14.6 % (11.5-14.5)
[2019-05-16 05:26] LABS: CALCIUM 8.5 mg/dL (8.4-10.2); CREATININE, serum 1.22 (0.66-1.25); MAGNESIUM 2.2 mg/dL (1.6-2.3); POTASSIUM 3.5 mmol/L (3.4-5.0)
--- NOTE | 2019-05-16 06:00 | NUR ---
Reporting 8/10 chest pain; pain quality and location unchanged from previous assessment. Continues to reports occasionall intermittent shortness of breath. 02 mid 90's on 2L. PRN morphine administered. Consent form for heart cath signted at this time. Will continue to monitor.
--- NOTE | 2019-05-16 10:30 | NUR ---
PATIENT GOES TO RN DERMATOLOGY AT THIS TIME.
--- NOTE | 2019-05-16 10:30 | NUR ---
PATIENT GIVES VERBAL CONSENT FOR HEART CATH WITH POSSIBLE REVASCULARIZATION. WITNESSED BY MYSELF AND TOBY GALVAN FROM TECHNICAL REP.
--- NOTE | 2019-05-16 11:01 | NUR ---
SEE MERGE FOR MEDICATION ADMINISTRATION TIMES AND INTRA AND POST SEDATION ASSESSMENTS.
--- NOTE | 2019-05-16 11:28 | NUR ---
The patient to have cardiac cath this day. director of special services will continue to monitor for discharge needs.
--- NOTE | 2019-05-16 16:59 | NUR ---
REPORT GIVEN TO TOBY TERESA. PATIENT LYING IN BED WITH NO COMPLAINTS VISITING WITH FAMILY.
--- NOTE | 2019-05-16 18:08 | NUR ---
patient doing well post cath, left radial access site looks good/ band removed, no oozing or signs of bleeding/hematoma, vital signs remain stable, contineus to report intermittent chest pressure/ with associated dyspnea, I gave 2 mg Morphine and he reports this helps, will continue to monitor
--- NOTE | 2019-05-16 20:30 | NUR ---
Patient having urine leakage around colby catheter. Checked baloon and placement. No issues noted. Patient becoming increasingly frustrated due to leakage. Attempted to explain possible causes and managment of leakage. Notified hospitalist; recevied order for Levsin PRN. If not effective can remove colby and try placing male external catheter.
--- NOTE | 2019-05-16 22:16 | NUR ---
Patient continuing to have issues with leaking around colby catheter. Catheter flushed and balloon checked for adaquate fill. Spoke with hospitalist and recieved ok to remove colby catheter if continuing to have issues with leakage. Placed male external catheter at this time. Will continue to monitor.
[2019-05-17] VITALS (8 sets, daily range): BP systolic 90–124; BP diastolic 54–96; PULSE 77–87; TEMP 96.9–98.4
--- NOTE | 2019-05-17 03:28 | NUR ---
Resting in bed with eyes shut; no concerns at this time.
[2019-05-17 06:39] LABS: BASO % 0.5 % (0.0-2.0); EOS # 0.1 (0.0-0.7); EOS % 0.7 % (0-4.0); GRAN # 5.1 (1.4-6.5); HEMATOCRIT 42.4 % (42.0-52.0); HEMOGLOBIN 13.5 g/dl (13.5-18.0); LYMPH # 1.5 (1.2-3.4); LYMPH % 19.8 % (20.0-51.0); MEAN CELL VOLUME 88 fl (80.0-100.0); MEAN CORPUSCULAR HEMOGLOBIN 28 pg (27.0-31.0); MEAN CORPUSCULAR HGB CONC 32 g/dl (33.0-37.0); MEAN PLATELET VOLUME 10.6 fl (7.4-10.4); MONO # 0.9 (0.1-0.6); MONO % 11.7 % (1.7-9.3); PLATELET COUNT 239 K/mm3 (130-400); REDCELL DISTRIBUTION WIDTH-CV 14.4 % (11.5-14.5)
[2019-05-17 06:47] LABS: CALCIUM 8.4 mg/dL (8.4-10.2); CREATININE, serum 1.27 (0.66-1.25); POTASSIUM 3.9 mmol/L (3.4-5.0)
--- NOTE | 2019-05-17 07:15 | NUR ---
Report given to TOBY Andujar. Patient care transfered.
--- NOTE | 2019-05-17 08:00 | NUR ---
Shift assessment complete at this time. Plan of care reviewed at bedside with patient. Additional time taken to address any other needs or concerns. Vitals stable at this time. Pt repors mild, improving pain at a 4/10 severity and denies the need for further pain intervention at this time. Pt denies any other discomforts or concerns. Bed in low position, call light within reach, will continue to monitor.
--- NOTE | 2019-05-17 09:50 | NUR ---
Dr. Blue at bedside rounding on Pt.
--- NOTE | 2019-05-17 12:00 | NUR ---
Pt resting comfortably in bed. Reports similar mild 4/10 severity chest discomfort as noted previously in shift and declines need for intervention at this time. Vitals stable at this time. Pt denies any other discomforts. Bed in low position, call light within reach, will continue to monitor.
--- NOTE | 2019-05-17 14:18 | NUR ---
PATIENT IS UP ON THE FLOOR AT THIS TIME. LUNG SOUNDS ARE CLEAR BILATERALLY. HEART SOUNDS ARE NORMAL WITH S1&S2 NOTED. PULSES ARE EQUAL AND 2+. NO EDEMA NOTED. ONE IV LOCATED AT THE RIGHT FOREARM AND THE OTHER IS A LEFT WRIST. IV LASIX IS INFUSING AT 5.5 ML/HR. PATIENT HAD A BOWEL MOVEMENT UPON ARRIVAL. EXTERNAL MALE CATHETER IS IN PLACE AND PATENT AND DRAINING. PATIENT IS ALERT AND ORIENTATED X4. PATIENT IS ON 2 L OF NASAL CANNULA. PATIENT REQUESTED THAT THE WHOLE BED BE HIGHER SO HE CAN SEE THE TV AND OUT OF THE WINDOW BETTER. PATIENT IS STAND BY ASSIST IN THE ROOM TO INDEPENDENT. ROOM ORIENTATION WAS GIVEN TO THE PATIENT AND EXPLAINED THE CALL LIGHT
--- NOTE | 2019-05-17 17:14 | NUR ---
PATIENT IS RESTING IN BED. HE HAS HAD A SNACK - [employer]. PATIENT STILL REQUESTING THAT HE WHOLE BED BE ELEVATED SO HE CAN SEE THE TV AND OUTSIDE BETTER. BED ALARM IS ON. PATIENT DOES APPEAR TO BE ANXIOUS AT TIMES BUT IS ABLE TO MANAGE IT AT THIS TIME. MALE EXTERNAL CATHETER STILL DRAINING AT THIS TIME. PATIENT DENIES ANY OTHER NEEDS. WILL GIVE REPORT TO BLANKING PRESS OPERATOR UPON THEIR ARRIVAL.
--- NOTE | 2019-05-17 20:56 | NUR ---
Pt laying in bed no c/o pain or discomfort other than left hand IV. Charge Nurse removed IV. Assessment Complete. No further concerns.
[2019-05-18 04:29] VITALS: BP 107/75; PULSE 80; TEMP 97.8
--- NOTE | 2019-05-18 05:47 | NUR ---
PT LAYING IN BED, REQUESTED PAIN PILL. STATES PAIN IS A 4/10. PT HAD UNEVENTFUL NIGHT, HOWEVER, STATES THAT HE WOULD LIKE TO LEAVE REGARDLESS OF WHAT WE SAY. WILL INFORM PROVIDER, AND ENDORSE THIS REPORT TO THE ONCOMING RN.
[2019-05-18 06:45] LABS: BASO # 0.1 (0.0-0.2); BASO % 0.8 % (0.0-2.0); EOS # 0.1 (0.0-0.7); EOS % 1.8 % (0-4.0); GRAN # 4.2 (1.4-6.5); GRAN % 64.4 % (42.2-75.2); HEMATOCRIT 49.7 % (42.0-52.0); LYMPH # 1.3 (1.2-3.4); LYMPH % 19.1 % (20.0-51.0); MEAN CELL VOLUME 89 fl (80.0-100.0); MEAN CORPUSCULAR HEMOGLOBIN 28 pg (27.0-31.0); MEAN CORPUSCULAR HGB CONC 31 g/dl (33.0-37.0); MONO # 0.9 (0.1-0.6); MONO % 13.6 % (1.7-9.3); PLATELET COUNT 263 K/mm3 (130-400); RED BLOOD COUNT 5.59 M/mm3 (4.20-5.60); REDCELL DISTRIBUTION WIDTH-CV 14.2 % (11.5-14.5)
[2019-05-18 06:52] LABS: HEMOGLOBIN 15.5 g/dl (13.5-18.0)
[2019-05-18 07:07] LABS: CALCIUM 8.8 mg/dL (8.4-10.2); CREATININE, serum 1.38 (0.66-1.25); MAGNESIUM 2.4 mg/dL (1.6-2.3); POTASSIUM 3.6 mmol/L (3.4-5.0)
--- NOTE | 2019-05-18 07:30 | NUR ---
Assessment complete. Pt sitting up in bed, A&O x 4. Breath sounds CTAB. BS active x 4. Pt denies pain at this time. IV infusion to right forearm without s/s of complications. Saline lock IV to left wrist without s/s of complications. O2 at 2 L/min via NC, pt states, "I don't really need this anymore." Pt reports ready to go home and insists will be leaving today but will wait to talk to the doctor. No further needs reported. Call light in reach.
[2019-05-18 07:58] VITALS: BP 94/60; PULSE 81
--- NOTE | 2019-05-18 09:45 | NUR ---
Pt c/o severe cramping to left lower leg, attempting to rub. PRN pain medication administered and pt encouraged to ambulate. External catheter removed and urinals provided. O2 taken off and pt ambulating in hallway.
--- NOTE | 2019-05-18 10:00 | NUR ---
Upon returning to after ambulating in hallway, pt reports feeling increased shortness of breath, O2 sats 94% on room air. Cramping has improved but pt states, "I don't think I'm ready to go home after all."
[2019-05-18 11:25] VITALS: BP 96/68; PULSE 81; TEMP 98.1
[2019-05-18 16:19] VITALS: BP 106/70; PULSE 78; TEMP 97.5
--- NOTE | 2019-05-18 17:40 | NUR ---
Pt sitting up in bed after ambulating in hallway. Discussed new orders with pt regarding Nicotine patch to help "calm nerves" per pt's request. Pt agreeable to plan. Patch placed to right shoulder. Call light in reach.
--- NOTE | 2019-05-18 19:00 | NUR ---
Report rcvd from TOBY Mejia. Pt has no c/o pain or discomfort. Assessemnt complete. No concerns at this time.
[2019-05-18 19:24] VITALS: BP 116/80; PULSE 86; TEMP 97.6
[2019-05-19 00:29] VITALS: BP 103/70; PULSE 88; TEMP 98
[2019-05-19 03:32] VITALS: BP 118/83; PULSE 81; TEMP 97.8
[2019-05-19 07:53] VITALS: BP 117/80; PULSE 89; TEMP 97.6
--- NOTE | 2019-05-19 08:42 | NUR ---
PATIENT IS ALERT AND ORIENTED. PATIENT VABALIZE READINESS TO GO HOME. NO EDEMA. BREATHING IS UNLABORED. PATIENT HAD A BM THIS MORNING, ALSO REPORTED GOOD URINE OUTPUT
[2019-05-19 09:43] LABS: HEMATOCRIT 48.2 % (42.0-52.0); HEMOGLOBIN 15.4 g/dl (13.5-18.0); MEAN CELL VOLUME 88 fl (80.0-100.0); MEAN CORPUSCULAR HEMOGLOBIN 28 pg (27.0-31.0); MEAN CORPUSCULAR HGB CONC 32 g/dl (33.0-37.0); MEAN PLATELET VOLUME 10.3 fl (7.4-10.4); PLATELET COUNT 288 K/mm3 (130-400); RED BLOOD COUNT 5.47 M/mm3 (4.20-5.60)
[2019-05-19 09:56] LABS: CREATININE, serum 1.43 (0.66-1.25); POTASSIUM 4.3 mmol/L (3.4-5.0)
[2019-05-19] MEDS ORDERED: NICODERM C14 MG/PATC TD (10:57)
[2019-05-19] MEDS ORDERED: TOPROL XL 50MG50 MG PO (11:01)
[2019-05-19] MEDS ORDERED: ASPIRIN E.C. 8181 MG PO (11:01)
[2019-05-19] MEDS ORDERED: PRINIVIL10 MG PO (11:01)
[2019-05-19] MEDS ORDERED: LASIX 40MG TABL40 MG PO (11:02)
--- NOTE | 2019-05-19 11:43 | NUR ---
Patient is alert and oriented, IV discontinued. Patient denies any pain at this time. I provided discharge teaching on upcoming appointment, new medications and diagnosis information. Patient decline escort out of the building after discharge. Patient appear stable. he confirms he has all his belonging with him. Patient discharged.
--- NOTE | 2019-05-19 14:23 | NUR ---
Survey Technologist was notified by ELICEO Chavez that patient to discharge home today and has history of non-compliance with medications. SW met with patient who reports he is ready to get home. Patient states he will have medications delivered to his home by [facility] today. Patient denies any difficulty affording his medications. No additional needs identified at this time.
== END 2019-05-19 11:40 | disposition home or self-care (01) | DRG 280 ==
LOC: COL.ER 20:25 → ICU 21:38 → MEDICAL 05-17 13:30
PROVIDERS: Family Medicine; Internal Medicine; Internal Medicine Interventional Cardiology; Nurse Practitioner Family; Physician Assistant; ADMIT Student in an Organized Health Care Education/Training Program
PROC: 4A023N7 Measurement of Cardiac Sampling and Pressure, Left Heart, Percutaneous Approach (ICD-10-PCS; principal; 2019-05-16)
PROC: B2181ZZ Fluoroscopy of Left Internal Mammary Bypass Graft using Low Osmolar Contrast (ICD-10-PCS; 2019-05-16)
PROC: B2111ZZ Fluoroscopy of Multiple Coronary Arteries using Low Osmolar Contrast (ICD-10-PCS; 2019-05-16)
DX: I50.21 Acute systolic (congestive) heart failure (principal); I21.4 Non-ST elevation (NSTEMI) myocardial infarction; J96.01 Acute respiratory failure with hypoxia; N17.9 Acute kidney failure, unspecified; I25.10 Atherosclerotic heart disease of native coronary artery without angina pectoris; Z95.5 Presence of coronary angioplasty implant and graft; Z95.1 Presence of aortocoronary bypass graft; I73.9 Peripheral vascular disease, unspecified; R07.9 Chest pain, unspecified; Z91.14 Patient's other noncompliance with medication regimen; F17.210 Nicotine dependence, cigarettes, uncomplicated; J44.9 Chronic obstructive pulmonary disease, unspecified; R60.9 Edema, unspecified; E87.6 Hypokalemia
CPT/HCPCS: 99223-AI; 99233-AI; 99239; J1644; J1650; J1940; J2060; J2250; J2270; J3010; J3475; Q9967

== ENCOUNTER 2019-05-26 13:34 | Emergency (ER) | payer MEDICAID ==
[~2019-05-26] VITALS: Ht 172.7 cm; Wt 60.0 kg
[~2019-05-26 13:34] MED LIST changes: +LASIX 40MG TABL40 MG PO; +NICODERM C14 MG/PATC TD; +PRINIVIL10 MG PO; +TOPROL XL 50MG50 MG PO
[2019-05-26 13:40] VITALS: TEMP 97.1
[2019-05-26 14:03] LABS: BASO # 0.1 (0.0-0.2); BASO % 0.8 % (0.0-2.0); EOS # 0.1 (0.0-0.7); EOS % 1.5 % (0-4.0); GRAN # 4.2 (1.4-6.5); GRAN % 58.6 % (42.2-75.2); HEMATOCRIT 48.7 % (42.0-52.0); HEMOGLOBIN 15.4 g/dl (13.5-18.0); LYMPH # 1.8 (1.2-3.4); LYMPH % 24.8 % (20.0-51.0); MEAN CELL VOLUME 88 fl (80.0-100.0); MEAN CORPUSCULAR HEMOGLOBIN 28 pg (27.0-31.0); MEAN CORPUSCULAR HGB CONC 32 g/dl (33.0-37.0); MEAN PLATELET VOLUME 10.4 fl (7.4-10.4); MONO % 13.9 % (1.7-9.3); PLATELET COUNT 359 K/mm3 (130-400); RED BLOOD COUNT 5.51 M/mm3 (4.20-5.60); REDCELL DISTRIBUTION WIDTH-CV 14.1 % (11.5-14.5)
[2019-05-26 14:08] LABS: PROTHROMBIN TIME 11.1 SECONDS (9.7-12.8)
[2019-05-26 14:52] LABS: ALBUMIN 4.3 gm/dL (3.5-5.0); BILIRUBIN,TOTAL 0.7 mg/dL (0.0-1.0); CALCIUM 8.9 mg/dL (8.4-10.2); CREATININE, serum 1.16 (0.66-1.25); POTASSIUM 4.6 mmol/L (3.4-5.0); TOTAL PROTEIN 8.6 gm/dL (6.4-8.2)
[2019-05-26 15:03] LABS: TROPONIN-I 0.013 ng/mL (0.000-0.035)
[2019-05-26] MEDS ORDERED: ATARAX 25MG25 MG/TAB PO (18:01)
[2019-05-26 18:06] VITALS: BP 116/74; PULSE 75
== END 2019-05-26 18:10 | disposition home or self-care (01) ==
LOC: COL.ER 13:34
PROVIDERS: Emergency Medicine
DX: I20.9 Angina pectoris, unspecified (principal); I10 Essential (primary) hypertension; Z95.1 Presence of aortocoronary bypass graft; Z95.5 Presence of coronary angioplasty implant and graft; Z91.14 Patient's other noncompliance with medication regimen; Z79.82 Long term (current) use of aspirin
CPT/HCPCS: J1170; J2405; J7030; Q9967

== ENCOUNTER 2019-07-24 15:11 | Emergency (ER) | payer MEDICAID ==
[~2019-07-24] VITALS: Ht 172.7 cm; Wt 67.3 kg
[~2019-07-24 15:11] MED LIST changes: +ATARAX 25MG25 MG/TAB PO
[2019-07-24 15:23] VITALS: BP 137/90; TEMP 96.6
[2019-07-24] MEDS ORDERED: NORCO 325 MG-51 TAB PO (16:10)
[2019-07-24 16:26] VITALS: PULSE 79
== END 2019-07-24 16:26 | disposition home or self-care (01) ==
LOC: COL.ER 15:11
DX: S22.32XA Fracture of one rib, left side, initial encounter for closed fracture (principal); I25.10 Atherosclerotic heart disease of native coronary artery without angina pectoris; Z79.82 Long term (current) use of aspirin; Z87.891 Personal history of nicotine dependence; W19.XXXA Unspecified fall, initial encounter
CPT/HCPCS: A9284

== ENCOUNTER 2019-07-28 11:34 | Emergency (ER) | payer MEDICAID ==
[~2019-07-28] VITALS: Ht 172.7 cm; Wt 65.9 kg
[2019-07-28 11:44] VITALS: BP 136/80; TEMP 97.8
[2019-07-28] MEDS ORDERED: NORCO 325 MG-51 TAB PO (13:27)
[2019-07-28 13:43] VITALS: PULSE 103
== END 2019-07-28 13:43 | disposition home or self-care (01) ==
LOC: COL.ER 11:34
DX: S22.32XA Fracture of one rib, left side, initial encounter for closed fracture (principal); I25.10 Atherosclerotic heart disease of native coronary artery without angina pectoris; Z79.82 Long term (current) use of aspirin; W19.XXXA Unspecified fall, initial encounter
CPT/HCPCS: J2270; J2550

== ENCOUNTER → 2019-08-28 | Emergency (ER) | payer MEDICAID ==
[~2019-08-28] VITALS: Ht 172.7 cm; Wt 66.8 kg
[2019-08-28 15:41] VITALS: BP 112/73; PULSE 66; TEMP 97.3
== END ==
LOC: COL.ER 14:58
DX: G43.909 Migraine, unspecified, not intractable, without status migrainosus (principal); R11.0 Nausea; Z79.82 Long term (current) use of aspirin

== ENCOUNTER 2020-04-07 17:17 | Observation (INO) | payer MEDICAID ==
[~2020-04-07] VITALS: Ht 170.2 cm; Wt 60.5 kg
[2020-04-07 17:45] LABS: BASO # 0.1 (0.0-0.2); BASO % 0.9 % (0.0-2.0); EOS # 0.1 (0.0-0.7); EOS % 1.1 % (0-4.0); GRAN # 5.5 (1.4-6.5); GRAN % 63.7 % (42.2-75.2); HEMATOCRIT 41.6 % (42.0-52.0); HEMOGLOBIN 13.6 g/dl (13.5-18.0); LYMPH # 2.1 (1.2-3.4); LYMPH % 24.6 % (20.0-51.0); MEAN CELL VOLUME 89 fl (80.0-100.0); MEAN CORPUSCULAR HEMOGLOBIN 29 pg (27.0-31.0); MEAN CORPUSCULAR HGB CONC 33 g/dl (33.0-37.0); MEAN PLATELET VOLUME 10.8 fl (7.4-10.4); MONO # 0.8 (0.1-0.6); MONO % 9.5 % (1.7-9.3); PLATELET COUNT 303 K/mm3 (130-400)
[2020-04-07 17:51] LABS: BILIRUBIN,TOTAL 0.9 mg/dL (0.0-1.0); CREATININE, serum 1.32 (0.66-1.25); POTASSIUM 5.1 mmol/L (3.4-5.0); TOTAL PROTEIN 7.6 gm/dL (6.4-8.2)
[2020-04-07 17:54] LABS: INR 1.4 (0.8-3.0); PROTHROMBIN TIME 15.3 SECONDS (9.7-12.8)
[2020-04-07 18:03] LABS: TROPONIN-I 0.019 ng/mL (0.000-0.035)
[2020-04-07 20:26] VITALS: BP 132/97; PULSE 94; TEMP 98.3
--- NOTE | 2020-04-07 20:50 | NUR ---
Patient arrived to medical unit from ER at approximately 1999. Alert and oriented x 4, and able to make needs known. Reports level 9 pain to chest. Patient given PRN [place] for pain. Peripheral INT to left AC flushed. Site without redness, warmth, swelling, and pain. Denies having SOB and dyspnea. LS CTA. Respirations even and unlabored. HRR. Telemetry in place: normal sinus. Capillary refill less than 3 seconds. Non-tenting skin turgor. BSAx4. Abdomen soft and non-tender. No edema. Voices no questions, needs, or concerns at this time. Resting in bed with call light wtihin reach.
[2020-04-07 23:31] VITALS: BP 121/90; PULSE 85; TEMP 98.3
[2020-04-08 03:29] VITALS: BP 120/79; PULSE 78; TEMP 97.6
--- NOTE | 2020-04-08 05:39 | NUR ---
Patient received PRN [place] twice this shift for chest pain. Also received PRN Maalox. Patient denies having any other pain or discomfort except to chest. Had a sandwich box as requested when he first came up from ER. Patient voices no questions, needs, or concerns at this time. States he thinks he is ready to discharge home this morning. Explained to patient that it will be up to the doctor, how he is feeling, and how his labs look today. Voiced understanding. Resting in bed with call light within reach.
[2020-04-08 07:39] LABS: CHOLESTEROL RISK RATIO 4.4; MAGNESIUM 2.2 mg/dL (1.6-2.3)
[2020-04-08 07:45] VITALS: BP 117/90; PULSE 67; TEMP 97.2
[2020-04-08 07:50] LABS: TROPONIN-I 0.034 ng/mL (0.000-0.035)
--- NOTE | 2020-04-08 08:20 | NUR ---
Assessment complete. Patient sitting up in bed, awake and alert at this time. Reports being "a little sore" but feeling better. Reported some SOB while up and ambulating. IV site is CD&I, flushed well. PRN pain medication was requested but it was too early, patient was okay with waiting until medication was due. No other needs were expressed at si time. Call light is in reach. Will continue to monitor.
--- NOTE | 2020-04-08 08:42 | NUR ---
Attenmpted to call Dr. Phelan to report consult requested by hospitalist at this time. No answer, no option for voicemail. Will continue to try to gain contact.
[2020-04-08 08:52] LABS: BASO # 0.1 (0.0-0.2); BASO % 1.1 % (0.0-2.0); CALCIUM 8.4 mg/dL (8.4-10.2); CREATININE, serum 1.34 (0.66-1.25); EOS # 0.1 (0.0-0.7); EOS % 2.2 % (0-4.0); GRAN # 2.7 (1.4-6.5); GRAN % 49.4 % (42.2-75.2); HEMATOCRIT 38.7 % (42.0-52.0); HEMOGLOBIN 12.2 g/dl (13.5-18.0); LYMPH % 36.6 % (20.0-51.0); MAGNESIUM 2.2 mg/dL (1.6-2.3); MEAN CELL VOLUME 91 fl (80.0-100.0); MEAN CORPUSCULAR HEMOGLOBIN 29 pg (27.0-31.0); MEAN CORPUSCULAR HGB CONC 32 g/dl (33.0-37.0); MEAN PLATELET VOLUME 11.3 fl (7.4-10.4); MONO # 0.6 (0.1-0.6); MONO % 10.5 % (1.7-9.3); PLATELET COUNT 261 K/mm3 (130-400); POTASSIUM 3.8 mmol/L (3.4-5.0); RED BLOOD COUNT 4.27 M/mm3 (4.20-5.60); REDCELL DISTRIBUTION WIDTH-CV 14.2 % (11.5-14.5)
[2020-04-08] MEDS ORDERED: PROVENTIL0.09 MG/A1 IH (10:36)
[2020-04-08] MEDS ORDERED: PRINIVIL10 MG PO (10:37)
[2020-04-08] MEDS ORDERED: LASIX 40MG TABL40 MG PO (10:37)
[2020-04-08] MEDS ORDERED: ASPIRIN E.C. 8181 MG PO (10:37)
[2020-04-08] MEDS ORDERED: TOPROL XL 50MG50 MG PO (10:37)
[2020-04-08] MEDS ORDERED: NITROSTAT0.4 MG/TAB SL (10:37)
--- NOTE | 2020-04-08 10:53 | NUR ---
Patient left the floor AMA at this time. He ws pleasant in doing so but was very eager to leave once he was suggested to stay for cardiology consult despite no other issues. AMA form was signed, patient aware of risks. No other concerns.
--- NOTE | 2020-04-08 11:01 | NUR ---
FRIEDA attended clinical rounds. The hospitalist recommended that the patient see cardiology before he discharges. The patient reports that he feels better and wants to go, he does not want to wait. The hospitalist informed him of his risks of leaving. The patient decided to leave AMA. FRIEDA followed up with the patient about his meds. He states that he gets his meds at [facility] and will have them delivered to him. The patient expressed concerns about transportation. The patient has Medicaid. FRIEDA informed him on how he has transportation benefits through his Medicaid. FRIEDA provided him with [employer] phone number. The patient then asked FRIEDA for the patient's RN to come in to remove his IV. FRIEDA informed the patient's RN. The patient has left AMA.
== END 2020-04-08 10:55 | disposition left against medical advice (07) ==
LOC: COL.ER 17:17 → MEDICAL 18:23
PROVIDERS: Emergency Medicine; Nurse Practitioner Primary Care; Physician Assistant; ADMIT Hospitalist
DX: R07.9 Chest pain, unspecified (principal); E87.5 Hyperkalemia; I12.9 Hypertensive chronic kidney disease with stage 1 through stage 4 chronic kidney disease, or unspecified chronic kidney disease; N18.30 Chronic kidney disease, stage 3 unspecified; I08.3 Combined rheumatic disorders of mitral, aortic and tricuspid valves; F17.210 Nicotine dependence, cigarettes, uncomplicated; Z88.1 Allergy status to other antibiotic agents; Z20.822 Contact with and (suspected) exposure to COVID-19; Z79.82 Long term (current) use of aspirin; G43.909 Migraine, unspecified, not intractable, without status migrainosus; Z95.1 Presence of aortocoronary bypass graft
CPT/HCPCS: G0378; J1650; J1940; J2270; J2405

== ENCOUNTER 2020-04-21 13:34 | Emergency (ER) | payer MEDICAID ==
[~2020-04-21] VITALS: Ht 170.2 cm; Wt 61.4 kg
[2020-04-21 13:46] VITALS: TEMP 97.5
[2020-04-21] MEDS ORDERED: ZITHROMAX Z PA250 MG PO (14:47)
[2020-04-21] MEDS ORDERED: CHERATUSSIN AC120 ML PO (14:55)
[2020-04-21 14:59] VITALS: BP 126/87; PULSE 85
== END 2020-04-21 14:55 | disposition home or self-care (01) ==
LOC: COL.ER 13:34
DX: J20.9 Acute bronchitis, unspecified (principal); I25.10 Atherosclerotic heart disease of native coronary artery without angina pectoris; Z20.822 Contact with and (suspected) exposure to COVID-19; Z95.9 Presence of cardiac and vascular implant and graft, unspecified; Z88.8 Allergy status to other drugs, medicaments and biological substances; Z79.82 Long term (current) use of aspirin

== ENCOUNTER 2020-04-22 00:34 | Emergency (ER) | payer MEDICAID ==
[~2020-04-22] VITALS: Ht 170.2 cm; Wt 63.6 kg
[~2020-04-22 00:34] MED LIST changes: +CHERATUSSIN AC120 ML PO
[2020-04-22 00:38] VITALS: TEMP 97.2
[2020-04-22 00:52] LABS: BASO # 0.1 (0.0-0.2); BASO % 0.8 % (0.0-2.0); EOS # 0.2 (0.0-0.7); GRAN # 4.5 (1.4-6.5); GRAN % 58.6 % (42.2-75.2); HEMATOCRIT 38.6 % (42.0-52.0); HEMOGLOBIN 12.2 g/dl (13.5-18.0); LYMPH # 2.2 (1.2-3.4); MEAN CELL VOLUME 90 fl (80.0-100.0); MEAN CORPUSCULAR HEMOGLOBIN 28 pg (27.0-31.0); MEAN CORPUSCULAR HGB CONC 32 g/dl (33.0-37.0); MEAN PLATELET VOLUME 10.1 fl (7.4-10.4); MONO # 0.7 (0.1-0.6); MONO % 9.3 % (1.7-9.3); PLATELET COUNT 268 K/mm3 (130-400); REDCELL DISTRIBUTION WIDTH-CV 14.2 % (11.5-14.5)
[2020-04-22 00:58] LABS: INR 1.3 (0.8-3.0); PROTHROMBIN TIME 14.3 SECONDS (9.7-12.8)
[2020-04-22 01:01] LABS: PARTIAL THROMBOPLASTIN TIME 34.7 SECONDS (26.0-37.0)
[2020-04-22 01:07] LABS: ALBUMIN 3.8 gm/dL (3.5-5.0); BILIRUBIN,TOTAL 0.8 mg/dL (0.0-1.0); CALCIUM 8.7 mg/dL (8.4-10.2); CREATININE, serum 1.24 (0.66-1.25); POTASSIUM 4.1 mmol/L (3.4-5.0); TOTAL PROTEIN 7.3 gm/dL (6.4-8.2)
[2020-04-22 01:18] LABS: TROPONIN-I 0.019 ng/mL (0.000-0.035)
[2020-04-22 03:00] VITALS: BP 127/97; PULSE 104
== END 2020-04-22 02:00 | disposition short-term general hospital (02) ==
LOC: COL.ER 00:34
PROVIDERS: Emergency Medicine
DX: I21.3 ST elevation (STEMI) myocardial infarction of unspecified site (principal); I25.10 Atherosclerotic heart disease of native coronary artery without angina pectoris; I10 Essential (primary) hypertension; G43.909 Migraine, unspecified, not intractable, without status migrainosus; F17.210 Nicotine dependence, cigarettes, uncomplicated; Z95.5 Presence of coronary angioplasty implant and graft; Z95.1 Presence of aortocoronary bypass graft; Z88.1 Allergy status to other antibiotic agents; Z79.82 Long term (current) use of aspirin; Z88.8 Allergy status to other drugs, medicaments and biological substances
CPT/HCPCS: J1644; J2270; J2405; J2997; J7030

== ENCOUNTER 2020-04-26 13:40 | Emergency (ER) | payer MEDICAID ==
[~2020-04-26] VITALS: Ht 170.2 cm; Wt 63.6 kg
[2020-04-26 13:45] VITALS: BP 130/85; TEMP 97.9
[2020-04-26 14:41] VITALS: PULSE 90
== END 2020-04-26 14:41 | disposition home or self-care (01) ==
LOC: COL.ER 13:40
DX: R51.9 Headache, unspecified (principal); F17.200 Nicotine dependence, unspecified, uncomplicated; Z95.5 Presence of coronary angioplasty implant and graft; Z95.1 Presence of aortocoronary bypass graft; Z88.6 Allergy status to analgesic agent; Z88.8 Allergy status to other drugs, medicaments and biological substances; Z79.51 Long term (current) use of inhaled steroids; Z79.82 Long term (current) use of aspirin
CPT/HCPCS: J2765

== ENCOUNTER 2020-04-27 13:12 | Emergency (ER) | payer MEDICAID ==
[~2020-04-27] VITALS: Ht 172.7 cm; Wt 63.6 kg
[2020-04-27 13:22] VITALS: BP 119/79; PULSE 90; TEMP 98.5
== END 2020-04-27 14:45 | disposition left against medical advice (07) ==
LOC: COL.ER 13:12
DX: R51.9 Headache, unspecified (principal); F17.200 Nicotine dependence, unspecified, uncomplicated; Z95.5 Presence of coronary angioplasty implant and graft; Z95.1 Presence of aortocoronary bypass graft; Z88.6 Allergy status to analgesic agent; Z88.8 Allergy status to other drugs, medicaments and biological substances; Z79.51 Long term (current) use of inhaled steroids; Z79.82 Long term (current) use of aspirin
CPT/HCPCS: J1630

== ENCOUNTER 2020-04-27 16:25 | Emergency (ER) | payer MEDICAID ==
[~2020-04-27] VITALS: Ht 172.7 cm; Wt 63.6 kg
[2020-04-27 17:01] LABS: BASO # 0.1 (0.0-0.2); EOS # 0.2 (0.0-0.7); EOS % 2.5 % (0-4.0); GRAN # 4.4 (1.4-6.5); GRAN % 61.4 % (42.2-75.2); HEMATOCRIT 43.4 % (42.0-52.0); HEMOGLOBIN 13.6 g/dl (13.5-18.0); LYMPH # 1.7 (1.2-3.4); LYMPH % 23.5 % (20.0-51.0); MEAN CELL VOLUME 89 fl (80.0-100.0); MEAN CORPUSCULAR HEMOGLOBIN 28 pg (27.0-31.0); MEAN CORPUSCULAR HGB CONC 31 g/dl (33.0-37.0); MONO # 0.8 (0.1-0.6); MONO % 11.5 % (1.7-9.3); PLATELET COUNT 315 K/mm3 (130-400); RED BLOOD COUNT 4.88 M/mm3 (4.20-5.60); REDCELL DISTRIBUTION WIDTH-CV 13.8 % (11.5-14.5)
[2020-04-27 17:14] LABS: CALCIUM 8.8 mg/dL (8.4-10.2); CREATININE, serum 1.01 (0.66-1.25); POTASSIUM 4.3 mmol/L (3.4-5.0)
[2020-04-27 17:25] LABS: TROPONIN-I 0.013 ng/mL (0.000-0.035)
[2020-04-27 17:39] VITALS: BP 118/74; PULSE 78; TEMP 97.7
== END 2020-04-27 17:44 | disposition home or self-care (01) ==
LOC: COL.ER 16:25
PROVIDERS: Emergency Medicine
DX: R07.9 Chest pain, unspecified (principal); R51.9 Headache, unspecified; I25.10 Atherosclerotic heart disease of native coronary artery without angina pectoris; Z95.1 Presence of aortocoronary bypass graft; Z95.5 Presence of coronary angioplasty implant and graft; Z88.6 Allergy status to analgesic agent; Z88.8 Allergy status to other drugs, medicaments and biological substances; Z79.51 Long term (current) use of inhaled steroids; Z79.82 Long term (current) use of aspirin

== ENCOUNTER 2020-11-30 18:57 | Emergency (ER) | payer MEDICAID ==
[~2020-11-30] VITALS: Ht 172.7 cm; Wt 65.9 kg
[2020-11-30 19:00] VITALS: TEMP 98.3
[2020-11-30 20:13] LABS: BASO # 0.1 (0.0-0.2); BASO % 0.6 % (0.0-2.0); EOS # 0.1 (0.0-0.7); EOS % 0.6 % (0-4.0); GRAN # 7.6 (1.4-6.5); GRAN % 74.6 % (42.2-75.2); HEMATOCRIT 41.2 % (42.0-52.0); HEMOGLOBIN 12.7 g/dl (13.5-18.0); LYMPH # 1.2 (1.2-3.4); LYMPH % 11.8 % (20.0-51.0); MEAN CELL VOLUME 88 fl (80.0-100.0); MEAN CORPUSCULAR HEMOGLOBIN 27 pg (27.0-31.0); MEAN CORPUSCULAR HGB CONC 31 g/dl (33.0-37.0); MONO # 1.2 (0.1-0.6); PLATELET COUNT 277 K/mm3 (130-400); REDCELL DISTRIBUTION WIDTH-CV 14.5 % (11.5-14.5)
[2020-11-30 20:30] LABS: ALBUMIN 3.7 gm/dL (3.5-5.0); BILIRUBIN,TOTAL 0.8 mg/dL (0.0-1.0); CALCIUM 8.2 mg/dL (8.4-10.2); CREATININE, serum 1.15 (0.66-1.25); POTASSIUM 3.8 mmol/L (3.4-5.0)
[2020-11-30 20:40] LABS: TROPONIN-I 0.032 ng/mL (0.000-0.035)
[2020-11-30 21:09] VITALS: BP 127/103; PULSE 97
== END 2020-11-30 21:09 | disposition home or self-care (01) ==
LOC: COL.ER 18:57
PROVIDERS: Student in an Organized Health Care Education/Training Program
DX: I50.9 Heart failure, unspecified (principal); G43.909 Migraine, unspecified, not intractable, without status migrainosus; Z79.82 Long term (current) use of aspirin
CPT/HCPCS: J1940

== ENCOUNTER 2021-01-01 14:12 | Inpatient (IN) | payer MEDICAID ==
[~2021-01-01] VITALS: Ht 167.6 cm; Wt 62.9 kg
[2021-01-01 14:51] LABS: BASO % 0.4 % (0.0-2.0); EOS # 0.1 K/mm3 (0.0-0.7); EOS % 1.1 % (0-4.0); GRAN # 5.7 K/mm3 (1.4-6.5); HEMATOCRIT 42.8 % (42.0-52.0); HEMOGLOBIN 12.9 g/dl (13.5-18.0); LYMPH # 1.1 K/mm3 (1.2-3.4); LYMPH % 14.2 % (20.0-51.0); MEAN CELL VOLUME 85 fl (80.0-100.0); MEAN CORPUSCULAR HEMOGLOBIN 26 pg (27.0-31.0); MEAN CORPUSCULAR HGB CONC 30 g/dl (33.0-37.0); MEAN PLATELET VOLUME 11.1 fl (7.4-10.4); MONO # 0.6 K/mm3 (0.1-0.6); PLATELET COUNT 244 K/mm3 (130-400); RED BLOOD COUNT 5.04 M/mm3 (4.20-5.60); REDCELL DISTRIBUTION WIDTH-CV 16.7 % (11.5-14.5)
[2021-01-01 15:07] LABS: ALBUMIN 3.2 gm/dL (3.5-5.0); BILIRUBIN,TOTAL 1.1 mg/dL (0.2-1.2); CALCIUM 8.6 mg/dL (8.4-10.2); CREATININE, serum 1.05 mg/dL (0.72-1.25); POTASSIUM 3.4 mmol/L (3.5-4.5); TOTAL PROTEIN 8.3 gm/dL (6.2-8.1)
[2021-01-01 15:13] LABS: TROPONIN-I 0.04 ng/mL (0.00-0.033)
[2021-01-01] MEDS ORDERED: LIPITOR 80MG80 MG PO (16:39)
[2021-01-01] MEDS ORDERED: PRINIVIL5 MG PO (16:40)
[2021-01-01 19:56] VITALS: BP 123/95; PULSE 79; TEMP 97.7
--- NOTE | 2021-01-01 20:13 | NUR ---
PT RECEIVED ON FLOOR. VITAL SIGNS OBTAINED. PT COMPLAINING OF CHEST PAIN 9/10, STATES PRESSURE WHEN LYING FLAT. PT HAD SOA WHEN ENTERING ROOM SPO2 100% UPON COLLECTION.
--- NOTE | 2021-01-01 20:32 | NUR ---
PT HAS PAIN IN LEFT CALF, NO REDNESS NOTED, SLIGHTLY MORE EDEMATOUS THAN RIGHT. BOTH RIGHT AND LEFT LOWER EXTREMITIES ARE EDEMATOUS.
--- NOTE | 2021-01-01 20:36 | NUR ---
ATTEMPT TO CONTACT HOSPITALIST OF TROPONIN AND CHEST PAIN. NO ANSWER, WILL TRY AGAIN AT LATER TIME.
--- NOTE | 2021-01-01 20:49 | NUR ---
NOTIFIED ELICEO MCNAMARA OF ELEVATED TROPONIN, CHEST PAIN, AND PT REFUSING TORADOL. VERBAL INSTRUCTIONS TO TRY TORADOL WITH ZOFRAL.
[2021-01-01 23:45] VITALS: BP 119/93; PULSE 94; TEMP 98.2
--- NOTE | 2021-01-02 01:30 | NUR ---
NOTIFIED ELICEO ARCE OF FINDINGS WITH LEFT LOWER EXTREMITY SLIGHTLY LARGER THAN RIGHT AND PAIN IN CALF.
--- NOTE | 2021-01-02 02:22 | NUR ---
NOTIFIED RT OF INABILITY TO SEE 2000 EKG. EKG PRINTED AND PUT IN CHART.
--- NOTE | 2021-01-02 02:23 | NUR ---
PT REPORTS BAD HISTORIAN FOR MEDICATIONS. "I TAKE 6 MEDICATIONS." REPORTS HAVING LIST SOMEWHERE, CHART REVIEWED NO MEDICATIONS FOUND. WILL ATTEMPT TO FIND MED LIST AT LATER TIME TO COMPLETE MED REC.
--- NOTE | 2021-01-02 03:45 | NUR ---
NOTIFIED DR. ALANIS OF ELEVATED D-DIMER. RECEIVED VERBAL ORDERS FOR CT/PE PROTOCOL, LOVENOX 1MG/KG BID SUBCUTANEOUS, AND INCREASE ACTIVITY FROM BEDREST TO ACTIVITY TOLERATED.
[2021-01-02 03:51] VITALS: BP 104/66; PULSE 72; TEMP 97.8
--- NOTE | 2021-01-02 05:37 | NUR ---
CALLED DR. PEREZ TO RELAY INFORMATION FROM RADIOLOGY FAX. RECEIVED VERBAL ORDERS TO DISCONTINUE LOVENOX AND START HEPARIN GTT TO MANAGE PE.
--- NOTE | 2021-01-02 06:58 | NUR ---
LAB UNABLE TO OBTAIN HEPARIN DRAW AT THIS TIME.
[2021-01-02 08:27] VITALS: BP 113/82; PULSE 86; TEMP 98.2
--- NOTE | 2021-01-02 09:22 | NUR ---
Pt awake upon entry, no C/O pain at this time. provided information on his PE an current treatment. Shift assessment complete, left Pt call light in reach, bed in lowest position.
[2021-01-02 09:33] LABS: PARTIAL THROMBOPLASTIN TIME 31.3 SECONDS (26.0-37.0)
[2021-01-02 09:34] LABS: CALCIUM 8.3 mg/dL (8.4-10.2); CREATININE, serum 1.35 mg/dL (0.72-1.25); POTASSIUM 4.5 mmol/L (3.5-4.5)
[2021-01-02 09:43] LABS: HEMOGLOBIN 11.7 g/dl (13.5-18.0); MEAN CELL VOLUME 86 fl (80.0-100.0); MEAN CORPUSCULAR HEMOGLOBIN 26 pg (27.0-31.0); MEAN CORPUSCULAR HGB CONC 30 g/dl (33.0-37.0); MEAN PLATELET VOLUME 11.7 fl (7.4-10.4); PLATELET COUNT 223 K/mm3 (130-400); RED BLOOD COUNT 4.52 M/mm3 (4.20-5.60); REDCELL DISTRIBUTION WIDTH-CV 16.9 % (11.5-14.5)
[2021-01-02 09:47] LABS: TROPONIN-I 0.047 ng/mL (0.00-0.033)
[2021-01-02 13:03] VITALS: BP 123/91; PULSE 89; TEMP 98.2
[2021-01-02 16:41] VITALS: BP 123/87; PULSE 79; TEMP 97.6; TEMP 98
[2021-01-02 21:09] VITALS: BP 116/76; PULSE 87; TEMP 98.2
--- NOTE | 2021-01-02 23:44 | NUR ---
Patient reports chest pain 8/10 at shift start. TOBY Marquez administered scheduled Toradol via IV. Patient reports SOB and increased chest pain 9/10 around 20:30 pm. Respiratory in the room and put on oxygen via NC and EKG was done at this time. VS stable. PRN Nitrostat and pain med given at this time. Heparin drip currently running at 12ml/hr. Call light in reach. Will continue to monitor.
[2021-01-03] VITALS (324 sets, daily range): BP systolic 101–122; BP diastolic 82–98; PULSE 66–88; TEMP 97.5–98.2; O2SAT 48–100
--- NOTE | 2021-01-03 00:38 | NUR ---
Patient reports IV got pulled out accidently after he went to bathroom around 00:30 am. Heparin drip stopped at this time. Patient refused new IV start. Patient states, "I don't want to be poked tonight, It's ok do it tomorrow after I sleep." ELICEO Carrasquillo updated. Per Neida, since patient seems to be transitioning to Eliquis PO, it's ok to hold on Heparin drip tonight per patient request. And will change pain meds to oraly at this time. Call light in reach. Will continue to monitor.
--- NOTE | 2021-01-03 06:36 | NUR ---
Patient doing much better this morning. Patient rates chest area pain 3/10. Patient refuse Scheduled Toradol for pain at this time. Patient states, "I am doing ok for now". Assisted patient to order the breakfast. Call light in reach.
[2021-01-03 09:18] LABS: HEMATOCRIT 41.4 % (42.0-52.0); HEMOGLOBIN 12.5 g/dl (13.5-18.0); MEAN CELL VOLUME 86 fl (80.0-100.0); MEAN CORPUSCULAR HEMOGLOBIN 26 pg (27.0-31.0); MEAN CORPUSCULAR HGB CONC 30 g/dl (33.0-37.0); MEAN PLATELET VOLUME 11.7 fl (7.4-10.4); PLATELET COUNT 238 K/mm3 (130-400); RED BLOOD COUNT 4.81 M/mm3 (4.20-5.60); REDCELL DISTRIBUTION WIDTH-CV 16.8 % (11.5-14.5)
[2021-01-03 09:21] LABS: CALCIUM 8.8 mg/dL (8.4-10.2); CREATININE, serum 1.5 mg/dL (0.72-1.25); POTASSIUM 4.5 mmol/L (3.5-4.5)
--- NOTE | 2021-01-03 09:38 | NUR ---
Pt awake upon entry, very anxous, talkative. Shoft assessment complete, left Pt call light in reach, bed in lowest position.
--- NOTE | 2021-01-03 09:45 | NUR ---
FRIEDA met with the patient to discuss discharge plan. The patient lives in [place] with his brother, Venancio. He reports independence with ADLs and does not have any DME. The patient reports that he is not longer seeing Dr. Dumont for primary care and that his DCF worker was helping him get set up with a new provider. SW informed him that we could assist him with getting a new PCP prior to discharge. The patient then appeared upset and states that his DCF worker is already working on this. He could not recall his DCF worker's name. He receives his medications from [facility] He reports no difficulties obtaining his meds. The patient does not have a DPOA-HC and he was not interested in completing one at this time. The patient states that he is not and that he has two sons. His sister, Maye (ph#[phone]), is listed as his emergency contact. The patient plans to return home with his brother upon discharge. He is currently requiring oxygen. SW to continue to monitor. FRIEDA then contacted Aysuh, APS worker, to inquire if she is working with the patient. Ayush confirms that she is working with the patient. She reports that she visited the patient and his brother in their home. She reports that his brother drinks a lot, but that their home was clean and everything appeared to be okay. She reports that they were going to assist him with getting the patient a PCP, but that they would prefer for the hospital to go ahead and get him set up with one. She reports that she can talk to the patient about this. SW to follow up with the patient about a PCP. *Discharge plan: home with brother*
--- NOTE | 2021-01-03 11:41 | NUR ---
RECEIVED REPORTFRDANIELA HAND RN. AWAITING ARRIVAL OF PT TO ICU 5.
--- NOTE | 2021-01-03 12:05 | NUR ---
PT ARRIVES TO [facility] VIA BED AND TRANSFERS SELF TO ICU BED. PLACED ON BEDSIDE CONTINUOUS MONITOR. PT ON 2L VIA NC. NOTED PT GETS VERY SHOB WITH EXERTION BUT IS ABLE TO SETTLE ONCE IN BED. VSS. CALL LIGHT AND URINAL WITHIN REACH.
--- NOTE | 2021-01-03 12:30 | NUR ---
Initial visit; Patient stated there was nothing he wanted, that now is not a good time to talk to him.Video Production Coordinator offered God's blessings and he thanked her and offered her the same.
[2021-01-03 13:14] LABS: TRICYCLIC ANTIDEPRESS URINE NEGATIVE
--- NOTE | 2021-01-03 16:30 | NUR ---
DR LEON AT PLACING CENTRAL LINE, STERILE TECHNIQUE PERFORMED.
[2021-01-03 17:44] LABS: COLLECTION METHOD CATHETER
[2021-01-03 17:58] LABS: PH 6 (5-8); SQUAMOUS EPITHELIAL None Seen /hpf; URINE APPEARANCE Clear; URINE BACTERIA None Seen /hpf; URINE BILIRUBIN Negative (NEGATIVE); URINE BLOOD Negative (NEGATIVE); URINE COLOR Straw; URINE GLUCOSE Negative (NEGATIVE); URINE KETONE Negative (NEGATIVE); URINE LEUKOCYTE ESTERASE Negative (NEGATIVE); URINE NITRATE Negative (NEGATIVE); URINE PROTEIN(semi-quant) Negative (NEGATIVE); URINE RBC 0-2 /hpf; URINE UROBILINOGEN Negative (NEGATIVE)
--- NOTE | 2021-01-03 18:10 | NUR ---
DR ABAD AT BEDSIDE FOR ASSESSMENT AND DISCUSSING POC WITH PT.
--- NOTE | 2021-01-03 19:21 | NUR ---
Received report from TOBY Gutierrez. All medications verified and all questions answered. Patient resting in bed with lights off. VSS. No concerns or complaints noted at this time from patient. Dressing CDI on left foot. Will resume care of patient at this time.
--- NOTE | 2021-01-03 19:37 | NUR ---
Received report from TOBY Brown. All medications verified and all questions answered. Patient has bumex gtt running at 5mls/hr. VSS. Patient resting in bed watching TV. No concerns or complaints noted at this time. Will resume care of patient at this time.
[2021-01-04] VITALS (440 sets, daily range): BP systolic 101–127; BP diastolic 66–94; PULSE 70–90; TEMP 97.5–98.5; O2SAT 56–100
[2021-01-04 04:54] LABS: BASO # 0.1 K/mm3 (0.0-0.2); BASO % 0.7 % (0.0-2.0); EOS # 0.4 K/mm3 (0.0-0.7); GRAN # 5.6 K/mm3 (1.4-6.5); GRAN % 69.6 % (42.2-75.2); HEMATOCRIT 39.6 % (42.0-52.0); HEMOGLOBIN 12.4 g/dl (13.5-18.0); LYMPH # 1.4 K/mm3 (1.2-3.4); LYMPH % 16.9 % (20.0-51.0); MEAN CELL VOLUME 83 fl (80.0-100.0); MEAN CORPUSCULAR HEMOGLOBIN 26 pg (27.0-31.0); MEAN CORPUSCULAR HGB CONC 31 g/dl (33.0-37.0); MEAN PLATELET VOLUME 10.8 fl (7.4-10.4); MONO # 0.6 K/mm3 (0.1-0.6); MONO % 7.6 % (1.7-9.3); PLATELET COUNT 251 K/mm3 (130-400); RED BLOOD COUNT 4.77 M/mm3 (4.20-5.60); REDCELL DISTRIBUTION WIDTH-CV 16.6 % (11.5-14.5)
[2021-01-04 05:23] LABS: CALCIUM 8.8 mg/dL (8.4-10.2); CREATININE, serum 1.4 mg/dL (0.72-1.25); POTASSIUM 4.2 mmol/L (3.5-4.5)
--- NOTE | 2021-01-04 11:28 | NUR ---
Patient to transfer from ICU up to the floor.
--- NOTE | 2021-01-04 13:18 | NUR ---
Postal Supervisor contacted hospitalist to request PT orders.
--- NOTE | 2021-01-04 16:46 | NUR ---
REPORT GIVEN TO TOBY BLUE ON MEDICAL FLOOR FOR PT TRANSFER.
--- NOTE | 2021-01-04 16:52 | NUR ---
REPORT GIVEN TO TOBY BLUE. PT TRANSPORTED TO ROOM 314 VIA WHEELCHAIR. MET RN IN ROOM. RELINQUISHED CARE AT THIS TIME.
--- NOTE | 2021-01-04 18:29 | NUR ---
PT TRANSFERRED TO FLOOR FROM ICU. PT AWAKE/ALERT IN BED. JUST HAD A RECENT EPISODE OF MUSCLE SPASMS. MEDICATION ADMINISTERED PER PT REQUEST. PT DENIES OTHER NEEDS AT THIS TIME. CALL ZAPATA IN REACH
[2021-01-05] VITALS (7 sets, daily range): BP systolic 96–141; BP diastolic 55–83; PULSE 68–92; TEMP 97.5–98.6
[2021-01-05 05:32] LABS: HEMATOCRIT 39.6 % (42.0-52.0); HEMOGLOBIN 12.4 g/dl (13.5-18.0); MEAN CELL VOLUME 82 fl (80.0-100.0); MEAN CORPUSCULAR HEMOGLOBIN 26 pg (27.0-31.0); MEAN CORPUSCULAR HGB CONC 31 g/dl (33.0-37.0); MEAN PLATELET VOLUME 10.6 fl (7.4-10.4); PLATELET COUNT 254 K/mm3 (130-400); RED BLOOD COUNT 4.82 M/mm3 (4.20-5.60); REDCELL DISTRIBUTION WIDTH-CV 16.2 % (11.5-14.5)
[2021-01-05 05:48] LABS: CALCIUM 8.7 mg/dL (8.4-10.2); CREATININE, serum 1.45 mg/dL (0.72-1.25); MAGNESIUM 2.2 mg/dL (1.6-2.6); POTASSIUM 4.2 mmol/L (3.5-4.5)
--- NOTE | 2021-01-05 06:12 | NUR ---
RESTED THROUGH THE NIGHT WITHOUT INCIDENT. NEEDS MET.
--- NOTE | 2021-01-05 06:47 | NUR ---
RECEIVED REPORT FROM TOBY DAWKINS. PT ASLEEP IN BED. BREATHING REG/UNLABORED. CALL ZAPATA IN REACH
--- NOTE | 2021-01-05 11:02 | NUR ---
The patient's RN notified FRIEDA that the patient's niece, Isa, has been calling up here to see if the patient's sister, Maye, can come up here. She requested that FRIEDA contact family. The patient currently has another designated visitor. FRIEDA contacted the patient's sister, Maye, to follow up. Maye reports that she has concerns with the patient returning home with their brother, but understands that it is the patient's decision. She is aware APS is involved and working with the patient. Maye reports that she is able to transport the patient home upon discharge. FRIEDA informed her how the clinical team is thinking possible dc tomorrow. Maye verbalized understanding. FRIEDA then met with the patient to review discharge plan and discuss getting set up with a PCP. The patient confirms that he still plans on returning home with his brother upon discharge. He is open for SW to get him set up with a PCP. FRIEDA contacted [facility] and secured the patient an appointment with Dr. Eric Espinosa on Sunday, 01/12, at 1000. Their fax number to send records to is [phone]. FRIEAD notified the gunite mixer of the appointment. *Discharge plan: home with brother*
--- NOTE | 2021-01-05 18:26 | NUR ---
PT HAD UNEVENTFUL DAY. DENIES PAIN. NO NEEDS AT THIS TIME. RESTING IN BED. CALL ZAPATA IN REACH
--- NOTE | 2021-01-05 21:26 | NUR ---
ALERT AND OX4. DENIES SOA, CHEST PAIN OR DIZZY. RATING PAIN 8/10, ARM CRAMPS. PM MEDS GIVEN. LEFT IJ FLUSHED W GOOD BLOOD RETURN. POC DISCUSSED. POSSIBLE DC TOMORROW. NEEDS MET.
[2021-01-06 00:12] VITALS: BP 91/52; PULSE 72; TEMP 97.6
[2021-01-06 04:02] VITALS: BP 108/64; PULSE 72; TEMP 97.6
--- NOTE | 2021-01-06 05:44 | NUR ---
RESTED THROUGH THE NIGHT WITHOUT INCIDENT. NEEDS MET.
[2021-01-06 06:35] LABS: HEMATOCRIT 39.9 % (42.0-52.0); HEMOGLOBIN 12.3 g/dl (13.5-18.0); MEAN CELL VOLUME 82 fl (80.0-100.0); MEAN CORPUSCULAR HEMOGLOBIN 25 pg (27.0-31.0); MEAN CORPUSCULAR HGB CONC 31 g/dl (33.0-37.0); MEAN PLATELET VOLUME 11.3 fl (7.4-10.4); PLATELET COUNT 271 K/mm3 (130-400); RED BLOOD COUNT 4.85 M/mm3 (4.20-5.60); REDCELL DISTRIBUTION WIDTH-CV 16.3 % (11.5-14.5)
[2021-01-06 07:05] LABS: CALCIUM 8.6 mg/dL (8.4-10.2); CREATININE, serum 0.95 mg/dL (0.72-1.25); MAGNESIUM 2.1 mg/dL (1.6-2.6)
[2021-01-06 08:20] VITALS: BP 125/75; PULSE 82; TEMP 97.9
--- NOTE | 2021-01-06 09:08 | NUR ---
Assessment completed, alert/oriented, vital signs stable, continues to report severe chest pain/ requesting pain meds often, heart RRR/ no changes on tele, lungs CTA/ no resp.difficulty noted, colby patent with clear yellow urine/ still receiving IV Bumex, he is up with PT/OT this morning, patient ate breakfast and denies other needs at htis time, he is hoping to be discharged home today
[2021-01-06] MEDS ORDERED: ELIQUIS 5MG PO (10:06)
[2021-01-06] MEDS ORDERED: BUMEX 1MG TA1 MG/TA1 PO (10:07)
--- NOTE | 2021-01-06 10:22 | NUR ---
The patient is to discharge back home with his brother today, 01/06. SW updated the patient's APS worker, Ayush. SW attempted to update the patient's sister, Maye. SW left her a voicemail. No additional needs at this time.
[2021-01-06] MEDS ORDERED: NICODERM C21 MG/PATC TD (11:29)
--- NOTE | 2021-01-06 11:37 | NUR ---
Discharge orders discussed with the patient, instructed to follow up with PCP and Cardiolgoy as scheduled, isntructed to have labs drawn as ordered, discussed new medications and med chagnes, told to stop lasix and start bumex, starting eliquis and decreasing Lisinopril, scripts sent to [facility] pharmacy for him, left TLIJ central line removed/ pressure held and hemestasis acheived, bathing and acitivity restrictons discussed, colby catheter removed at this time as well, tele removed and notified, patient is ambulatory and leaving with his sister, I escorted him out the door
[2021-01-06] MEDS ORDERED: PROVENTIL0.09 MG/A1 IH (12:36)
== END 2021-01-06 12:06 | disposition home or self-care (01) | DRG 291 ==
LOC: COL.ER 14:12 → ICU 16:28 → COL.ER 16:28 → MEDICAL 16:28 → ICU 01-03 12:12 → MEDICAL 01-04 17:36 → ICU 01-04 17:36 → MEDICAL 01-04 17:36
PROVIDERS: Emergency Medicine; Family Medicine; Internal Medicine; Physician Assistant; ADMIT Internal Medicine
PROC: 05HN33Z Insertion of Infusion Device into Left Internal Jugular Vein, Percutaneous Approach (ICD-10-PCS; principal; 2021-01-03)
DX: I13.0 Hypertensive heart and chronic kidney disease with heart failure and stage 1 through stage 4 chronic kidney disease, or unspecified chronic kidney disease (principal); I50.23 Acute on chronic systolic (congestive) heart failure; I26.99 Other pulmonary embolism without acute cor pulmonale; N17.9 Acute kidney failure, unspecified; I47.2 Ventricular tachycardia; N18.30 Chronic kidney disease, stage 3 unspecified; I25.10 Atherosclerotic heart disease of native coronary artery without angina pectoris; F17.210 Nicotine dependence, cigarettes, uncomplicated; J44.9 Chronic obstructive pulmonary disease, unspecified; G43.901 Migraine, unspecified, not intractable, with status migrainosus; I08.3 Combined rheumatic disorders of mitral, aortic and tricuspid valves; E87.6 Hypokalemia; I27.20 Pulmonary hypertension, unspecified; I25.5 Ischemic cardiomyopathy; N14.1 Nephropathy induced by other drugs, medicaments and biological substances; T39.8X5A Adverse effect of other nonopioid analgesics and antipyretics, not elsewhere classified, initial encounter; I95.9 Hypotension, unspecified; Z20.822 Contact with and (suspected) exposure to COVID-19; Z95.5 Presence of coronary angioplasty implant and graft; Z95.1 Presence of aortocoronary bypass graft; Z79.82 Long term (current) use of aspirin
CPT/HCPCS: 99222-AI; 99233-AI; 99239; A4314; C1751; J1644; J1885; J1940; J2270; J3010; J3475; Q9967

== ENCOUNTER 2021-09-27 23:13 | Emergency (ER) | payer MEDICAID ==
[~2021-09-27] VITALS: Ht 172.7 cm; Wt 65.9 kg
[~2021-09-27 23:13] MED LIST changes: +BUMEX 1MG TA1 MG/TA1 PO; +ELIQUIS 5MG PO; +LIPITOR 80MG80 MG PO; +NICODERM C21 MG/PATC TD; +PRINIVIL5 MG PO
[2021-09-27 23:16] VITALS: TEMP 97.7
[2021-09-27 23:29] LABS: BASO # 0.1 K/mm3 (0.0-0.2); BASO % 0.9 % (0.0-2.0); EOS # 0.2 K/mm3 (0.0-0.7); EOS % 1.9 % (0.0-4.0); GRAN # 4.9 K/mm3 (1.4-6.5); GRAN % 59.8 % (42.2-75.2); LYMPH # 2.3 K/mm3 (1.2-3.4); LYMPH % 27.9 % (20.0-51.0); MEAN CELL VOLUME 84 fl (80.0-100.0); MEAN CORPUSCULAR HEMOGLOBIN 27 pg (27-31); MEAN CORPUSCULAR HGB CONC 33 g/dl (33.0-37.0); MEAN PLATELET VOLUME 10.2 fl (7.4-10.4); MONO # 0.8 K/mm3 (0.1-0.6); MONO % 9.3 % (1.7-9.3); PLATELET COUNT 225 K/mm3 (130-400); RED BLOOD COUNT 4.78 M/mm3 (4.20-5.60); REDCELL DISTRIBUTION WIDTH-CV 16.5 % (11.5-14.5)
[2021-09-27 23:36] LABS: INR 1.2 (0.8-3.0); PROTHROMBIN TIME 13.2 SECONDS (9.7-12.8)
[2021-09-27 23:44] LABS: ALBUMIN 3.8 gm/dL (3.5-5.0); BILIRUBIN,TOTAL 0.6 mg/dL (0.2-1.2); CREATININE, serum 1.06 mg/dL (0.72-1.25); POTASSIUM 3.9 mmol/L (3.5-4.5); TOTAL PROTEIN 7.8 gm/dL (6.2-8.1)
[2021-09-27 23:50] LABS: TROPONIN-I 0.01 ng/mL (0.00-0.033)
[2021-09-28 00:41] VITALS: BP 125/97; PULSE 74
== END 2021-09-28 00:54 | disposition home or self-care (01) ==
LOC: COL.ER 23:13
PROVIDERS: Emergency Medicine
DX: R07.9 Chest pain, unspecified (principal); F17.210 Nicotine dependence, cigarettes, uncomplicated; Z95.5 Presence of coronary angioplasty implant and graft; Z95.1 Presence of aortocoronary bypass graft; Z88.6 Allergy status to analgesic agent; Z28.310 Unvaccinated for COVID-19
CPT/HCPCS: J1940

== ENCOUNTER 2021-12-06 14:58 | Inpatient (IN) | payer MEDICAID ==
[~2021-12-06] VITALS: Ht 172.7 cm; Wt 75.3 kg
[2021-12-06 15:41] LABS: BASO # 0.1 K/mm3 (0.0-0.2); BASO % 0.9 % (0.0-2.0); EOS # 0.1 K/mm3 (0.0-0.7); EOS % 1.7 % (0.0-4.0); GRAN # 4.6 K/mm3 (1.4-6.5); GRAN % 69.7 % (42.2-75.2); HEMATOCRIT 37.8 % (42.0-52.0); LYMPH % 15.5 % (20.0-51.0); MEAN CELL VOLUME 86 fl (80.0-100.0); MEAN CORPUSCULAR HEMOGLOBIN 27 pg (27-31); MEAN CORPUSCULAR HGB CONC 32 g/dl (33.0-37.0); MONO # 0.8 K/mm3 (0.1-0.6); MONO % 11.9 % (1.7-9.3); PLATELET COUNT 301 K/mm3 (130-400); RED BLOOD COUNT 4.39 M/mm3 (4.20-5.60); REDCELL DISTRIBUTION WIDTH-CV 16.4 % (11.5-14.5)
[2021-12-06 15:47] LABS: INR 1.5 (0.8-3.0); PROTHROMBIN TIME 16.7 SECONDS (9.7-12.8)
[2021-12-06 15:50] LABS: PARTIAL THROMBOPLASTIN TIME 33.6 SECONDS (26.0-37.0)
[2021-12-06 15:55] LABS: ALBUMIN 3.3 gm/dL (3.5-5.0); BILIRUBIN,TOTAL 1.2 mg/dL (0.2-1.2); CALCIUM 8.3 mg/dL (8.4-10.2); CREATININE, serum 1.02 mg/dL (0.72-1.25); POTASSIUM 4.3 mmol/L (3.5-4.5); TOTAL PROTEIN 7.6 gm/dL (6.2-8.1)
[2021-12-06 16:04] LABS: TROPONIN-I 0.045 ng/mL (0.00-0.033)
[2021-12-06 18:00] LABS: TRICYCLIC ANTIDEPRESS URINE NEGATIVE
[2021-12-06 19:11] VITALS: BP 130/90; PULSE 88; TEMP 97.7
[2021-12-06 23:28] VITALS: BP 131/89; PULSE 94; TEMP 97.4
[2021-12-07] VITALS (7 sets, daily range): BP systolic 125–138; BP diastolic 82–102; PULSE 73–92; TEMP 97.4–97.8
[2021-12-07 06:23] LABS: BASO % 0.6 % (0.0-2.0); EOS # 0.2 K/mm3 (0.0-0.7); EOS % 2.6 % (0.0-4.0); GRAN % 64.5 % (42.2-75.2); HEMOGLOBIN 11.2 g/dl (13.5-18.0); LYMPH # 1.3 K/mm3 (1.2-3.4); LYMPH % 20.7 % (20.0-51.0); MEAN CELL VOLUME 88 fl (80.0-100.0); MEAN CORPUSCULAR HEMOGLOBIN 28 pg (27-31); MEAN CORPUSCULAR HGB CONC 32 g/dl (33.0-37.0); MEAN PLATELET VOLUME 10.6 fl (7.4-10.4); MONO # 0.7 K/mm3 (0.1-0.6); MONO % 11.3 % (1.7-9.3); PLATELET COUNT 263 K/mm3 (130-400); RED BLOOD COUNT 4.04 M/mm3 (4.20-5.60); REDCELL DISTRIBUTION WIDTH-CV 16.4 % (11.5-14.5)
[2021-12-07 06:38] LABS: CALCIUM 8.1 mg/dL (8.4-10.2); CHOLESTEROL RISK RATIO 3.8; CREATININE, serum 0.99 mg/dL (0.72-1.25); POTASSIUM 3.8 mmol/L (3.5-4.5)
[2021-12-07 06:40] LABS: HEMATOCRIT 35.5 % (42.0-52.0)
--- NOTE | 2021-12-07 08:00 | NUR ---
Patient is resting in bed, alert and oriented x 4, complains of chest pain, PRN provided. Telemetry in place, NSR. Getting Hep gtt at 1100units per hr. He has been NPO from midnight. Waiting for orders. Assessment completed, no other need a this time. Call light within reach.
--- NOTE | 2021-12-07 08:03 | NUR ---
HEP GTT AT GOAL LAB 0700, no changes per protocol. next level 1300.
--- NOTE | 2021-12-07 10:15 | NUR ---
Hep gtt discontinued per orders.
--- NOTE | 2021-12-07 11:37 | NUR ---
Fely: No anglican preference Situation: nurse private duty stopped by room on rounds Background: Pt was eating and content Assessment: Pt has no needs at this time. Pt appreciated the visit Recommendation: nurse private duty will follow up as needed
--- NOTE | 2021-12-07 12:15 | NUR ---
Lab troponin results 0.056 reported to cardio Sandra Holland, Ordered to cancel next trop lat at 17hrs. Cancelled.
--- NOTE | 2021-12-07 14:52 | NUR ---
Shuttle Bus Driver met with patient to complete intake. Patient expressed he was in pain and had some difficulty focusing on questions, however was agreeable to speak with SW. Patient lives in [place] with his girlfriend, Francia and does not have a current primary care physician. Patient states he used to see some young raymundo but can't remember his name. Patient obtains medications from [facility] and does not use any DME. Patient is independent with ADLS and plans to return home at time of discharge. Patient advised he is not and has two children, Jeremiah and David. Patient does not have DPOA-HC and is not interested in completing one at this time. SW will follow up at a later time to address positive UDS for methamphetamines and cannabinoids.
--- NOTE | 2021-12-07 17:16 | NUR ---
Pt reports SOB, O2 sat 99% at RA. HR 75-90. Reported to Dr. Barrientos. Pt asking for some antianxiety med. Dr. Barrientos will place orders.
--- NOTE | 2021-12-07 18:30 | NUR ---
Patient has had some anxiety, some antianxiety med provided. He has been asking more constantly for pain meds. PRN provided per orders. Waiting for his dinner. Report given to woodrow RN.
[2021-12-07 23:34] LABS: CALCIUM 8.3 mg/dL (8.4-10.2); CREATININE, serum 1.16 mg/dL (0.72-1.25); MAGNESIUM 1.9 mg/dL (1.6-2.6); POTASSIUM 3.9 mmol/L (3.5-4.5)
[2021-12-08] VITALS (7 sets, daily range): BP systolic 104–139; BP diastolic 71–91; PULSE 69–94; TEMP 97.5–98.5
--- NOTE | 2021-12-08 01:09 | NUR ---
Patient assessed around 2019. Given PRN Morphine for level 9 pain to chest as requested. Recheck an hour later, patient was sleepy, but awoke easily, continued to report level 9 pain, but closed eyes and seemed to be resting again. Patient on telemetry. Telemetry called and stated patient had 7 sec episode of A-fib RVR vs Vtach. Patient was not up walking at that time. Called CRISTINA Haddad, who ordered labs, then requested cardiology to be called. Called Dr. Camp, updated on patient. New order obtained and given per orders. Updated Catie on new orders. Patient in bed with call light within reach at this time. Eyes closed, respirations even and unlabored.
--- NOTE | 2021-12-08 05:59 | NUR ---
Patient received PRN Morphine for pain around 2219. Has not requested any further pain medication this shift. In bed with call light within reach. Eyes closed, respirations even and unlabored.
[2021-12-08 06:51] LABS: BASO # 0.1 K/mm3 (0.0-0.2); EOS # 0.1 K/mm3 (0.0-0.7); EOS % 1.8 % (0.0-4.0); GRAN % 69.2 % (42.2-75.2); HEMATOCRIT 39.2 % (42.0-52.0); HEMOGLOBIN 12.2 g/dl (13.5-18.0); LYMPH # 1.2 K/mm3 (1.2-3.4); LYMPH % 16.8 % (20.0-51.0); MEAN CELL VOLUME 88 fl (80.0-100.0); MEAN CORPUSCULAR HEMOGLOBIN 27 pg (27-31); MEAN CORPUSCULAR HGB CONC 31 g/dl (33.0-37.0); MEAN PLATELET VOLUME 10.6 fl (7.4-10.4); MONO # 0.8 K/mm3 (0.1-0.6); MONO % 11.1 % (1.7-9.3); PLATELET COUNT 288 K/mm3 (130-400); RED BLOOD COUNT 4.47 M/mm3 (4.20-5.60); REDCELL DISTRIBUTION WIDTH-CV 16.3 % (11.5-14.5)
[2021-12-08 07:14] LABS: CALCIUM 8.6 mg/dL (8.4-10.2); CREATININE, serum 1.23 mg/dL (0.72-1.25)
--- NOTE | 2021-12-08 09:22 | NUR ---
PT ALERT AND ORIENTED TIMES 4 SITTING IN BED. VITALS STABLE PT ON ROOM AIR. CALL LIGHT WITHIN REACH. NO FURTHER NEEDS IDENTIFIED.
--- NOTE | 2021-12-08 09:44 | NUR ---
RN ARMAND ADMINISTERED MEDICATION AND PERFORMED ASSESSMENT UNDER SUPERVISION OF THIS RN. PATIENT CURRENTLY RESTING IN BED. COMPLAITNS OF CHEST PAIN, MEDICATION GIVEN PER EMAR. PATIENT HAS BELONGINGS AND CALL LIGHT WITHIN REACH. NO NEEDS AT THIS TIME. WILL CONTINUE TO MONITOR.
--- NOTE | 2021-12-08 13:31 | NUR ---
INFORMED EDILSON, PER TELE PATIENT HAD 20 SECOND RUN OF AFIB RVR HR RATE 100-110 BPM. BUT CONVERTED BACK TO NSR WITH HR OF 82 NOW. NO NEW ORDERS GIVEN.
--- NOTE | 2021-12-08 18:00 | NUR ---
PATIENT ALERT AND AWAKE, CURRENTLY SITTING UP IN BED. NO NEES OR COMPLAINTS AT THIS TIME. BELONGINGS AND CALL LIGHT WITHIN REACH.
--- NOTE | 2021-12-08 18:22 | NUR ---
PT A&O TIMES 4. VITALS STABLE ON ROOM AIR. PT SITTING UP IN BED WATCHING TV. I&Os MONITORED AND PT EDUCATED ON FLUID RESTRICTION. CALL LIGHT WITHIN REACH. NO FURTHER NEEDS IDENTIFIED.
--- NOTE | 2021-12-08 23:24 | NUR ---
Patient assessed around 2054. Alert and oriented, and able to make needs known. Complained of level 9 chest pain at time of assessment, and given PRN Morphine as requested for pain. Peripheral INT to left forearm. Patient voices no further questions, needs, or concerns at this time. Smiling and laughing, joking about movie on TV at time of assessment. In bed with call light within reach.
[2021-12-09 04:15] VITALS: BP 118/86; PULSE 74; TEMP 97.4
--- NOTE | 2021-12-09 05:56 | NUR ---
Patient received PRN Acetaminophen for pain this morning. Given pudding as requested. Voices no questions, needs, or concerns at this time. In bed with call light within reach.
[2021-12-09 08:18] VITALS: BP 106/71; PULSE 79; TEMP 97.6
--- NOTE | 2021-12-09 09:31 | NUR ---
VOICEMAIL LEFT FOR THONG Walsh FROM CARDIOLOGY.
[2021-12-09] MEDS ORDERED: PRINIVIL5 MG PO (09:52)
[2021-12-09] MEDS ORDERED: PLAVIX 75MG TAB75 MG PO (09:52)
[2021-12-09] MEDS ORDERED: TOPROL XL 25MG25 MG PO (09:52)
[2021-12-09] MEDS ORDERED: ASPIRIN E.C. 8181 MG PO (09:52)
[2021-12-09] MEDS ORDERED: BUMEX 1MG TA1 MG/TA1 PO (09:52)
[2021-12-09] MEDS ORDERED: LIPITOR 80MG80 MG PO (09:52)
--- NOTE | 2021-12-09 11:05 | NUR ---
PATIENT GIVEN ALL DISCHARGE INSTRUCTIONS AND EDUCATION. ALL QUESTIONS ANSWERED. IV AND TELE DISCONTINUED. PATIENT WALKED TO ER ENTRANCE WITH PCT WHERE HIS FRIEND PICKED HIM UP. PATIENT LEFT IN STABLE CONDITION.
--- NOTE | 2021-12-09 13:29 | NUR ---
Residential Builder met with patient who is set to discharge today. Patient advised [facility] will deliver his medications to the home and that they are typically covered by his Medicaid. SW addressed patient's positive UDS and patient states he is done with meth and plans to quit. SW provided Drug/Alcohol and Mental Health resource guide to patient, however he is not interested in NA or any outpatient counseling. Patient states if he wants to quit it is up to him. Discharge Plan: Home
== END 2021-12-09 11:29 | disposition home or self-care (01) | DRG 291 ==
LOC: COL.ER 14:58 → MEDICAL 16:41
PROVIDERS: Nurse Practitioner Family; Physician Assistant; ADMIT Internal Medicine
DX: I13.0 Hypertensive heart and chronic kidney disease with heart failure and stage 1 through stage 4 chronic kidney disease, or unspecified chronic kidney disease (principal); I50.23 Acute on chronic systolic (congestive) heart failure; J91.8 Pleural effusion in other conditions classified elsewhere; I82.B21 Chronic embolism and thrombosis of right subclavian vein; I47.2 Ventricular tachycardia; Z66 Do not resuscitate; N18.9 Chronic kidney disease, unspecified; J44.9 Chronic obstructive pulmonary disease, unspecified; Z20.822 Contact with and (suspected) exposure to COVID-19; I25.10 Atherosclerotic heart disease of native coronary artery without angina pectoris; F17.210 Nicotine dependence, cigarettes, uncomplicated; G43.909 Migraine, unspecified, not intractable, without status migrainosus; I95.9 Hypotension, unspecified; F15.10 Other stimulant abuse, uncomplicated; F12.10 Cannabis abuse, uncomplicated; I73.9 Peripheral vascular disease, unspecified; R05.3 Chronic cough; Z88.8 Allergy status to other drugs, medicaments and biological substances; I25.2 Old myocardial infarction; Z91.19 Patient's noncompliance with other medical treatment and regimen; Z95.5 Presence of coronary angioplasty implant and graft; Z95.1 Presence of aortocoronary bypass graft
CPT/HCPCS: J1644; J1650; J1940; J2270; Q9967